=== PATIENT | female | born 1970 | race Caucasian/White ===

== ENCOUNTER → 2017-04-24 | Outpatient (POV) | payer MEDICAID, SELFPAY | PROVIDERS: Visit Provider Podiatrist | DX: M72.2 Plantar fascial fibromatosis (principal); B35.3 Tinea pedis | CPT/HCPCS: 99213 ==

== ENCOUNTER 2017-05-02 13:53 | Inpatient (IN) | payer MEDICAID, SELFPAY | END 2017-05-04 09:20 | disposition home or self-care (01) | DRG 392 | PROVIDERS: Admitting Provider Emergency Medicine; Emergency Provider Emergency Medicine; Visit Provider Emergency Medicine | DX: N17.9 Acute kidney failure, unspecified (principal); I10 Essential (primary) hypertension; Z72.0 Tobacco use; K52.9 Noninfective gastroenteritis and colitis, unspecified | CPT/HCPCS: 36415; 74176; 80048; 80053; 81001; 82150; 83690; 85025; 87086; 96365; 96367; 96375; 99285; J1956; J2405 ==

== ENCOUNTER → 2017-05-07 | Outpatient (CLI) | payer MEDICAID, SELFPAY | PROVIDERS: Visit Provider Emergency Medicine | DX: Z79.899 Other long term (current) drug therapy (principal) | CPT/HCPCS: 80053; 82043; 82570; 83036; 85025 ==

== ENCOUNTER 2017-05-13 09:18 | Emergency (ER) | payer MEDICAID, SELFPAY | END 2017-05-13 10:44 | disposition home or self-care (01) | PROVIDERS: Emergency Provider Emergency Medicine; Family Provider Emergency Medicine; Visit Provider Emergency Medicine | DX: J10.1 Influenza due to other identified influenza virus with other respiratory manifestations (principal); J45.909 Unspecified asthma, uncomplicated; F17.210 Nicotine dependence, cigarettes, uncomplicated; Z88.6 Allergy status to analgesic agent | CPT/HCPCS: 93971; 99282 ==

== ENCOUNTER → 2017-05-13 | Emergency (ER) | payer MEDICAID, SELFPAY | PROVIDERS: Emergency Provider Emergency Medicine; Visit Provider Emergency Medicine | DX: N17.9 Acute kidney failure, unspecified (principal); I20.8 Other forms of angina pectoris; Z79.899 Other long term (current) drug therapy; Z88.0 Allergy status to penicillin; I10 Essential (primary) hypertension; E78.5 Hyperlipidemia, unspecified; E03.9 Hypothyroidism, unspecified; F41.8 Other specified anxiety disorders; F17.210 Nicotine dependence, cigarettes, uncomplicated | CPT/HCPCS: 36415; 80053; 85025; 93971; 96372; 99282; 99283 ==

== ENCOUNTER 2017-05-14 15:35 | Inpatient (IN) | payer MEDICAID, SELFPAY | END 2017-05-16 15:25 | disposition home or self-care (01) | DRG 253 | PROVIDERS: Admitting Provider Family Medicine; Family Provider Emergency Medicine; Visit Provider Emergency Medicine | DX: I70.222 Atherosclerosis of native arteries of extremities with rest pain, left leg (principal); I70.92 Chronic total occlusion of artery of the extremities; N18.4 Chronic kidney disease, stage 4 (severe); I70.1 Atherosclerosis of renal artery; I77.1 Stricture of artery; Z72.0 Tobacco use; I12.9 Hypertensive chronic kidney disease with stage 1 through stage 4 chronic kidney disease, or unspecified chronic kidney disease; E87.6 Hypokalemia | CPT/HCPCS: 36200; 36415; 37226; 37230; 37234; 71020; 75630; 80048; 80053; 81001; 83735; 85025; 85347; 93005; 93923; 99152; J1644; J2720; Q9966 ==

== ENCOUNTER 2017-06-04 07:15 | Day surgery (SDC) | payer MEDICAID, SELFPAY ==
[2017-06-04] VITALS (14 sets, daily range): BP systolic 126–179; BP diastolic 81–99; PULSE 68–84; RESP 18–20; TEMP 36.6; O2SAT 91–98; BMI 28.8; BMI 28.5
[2017-06-04 07:59] LABS: Basophils # 0.1 K/mm3 (0-0.2); Basophils % 0.8 % (0.1-2.0); Eosinophils # 0.2 K/mm3 (0.0-0.4); Eosinophils % 2.8 % (0.1-12.0); Hemoglobin 14.4 g/dL (12.2-16.2); Lymphocytes % 13.2 K/mm3 (10-50); Mean Corpuscular HGB Conc 31.9 g/dL (31.8-35.4); Mean Corpuscular Hemoglobin 28.4 pg (27.0-31.2); Mean Corpuscular Volume 88.8 fl (81-99); Mean Platelet Volume 7.8 fl (7.4-10.4); Monocytes # 0.4 K/mm3 (0.1-1.0); Monocytes % 4.6 % (1.7-9.3); Neutrophils % 78.7 % (37.0-80.0); Platelet Count 224 K/mm3 (142-424); Red Blood Count 5.07 M/mm3 (4.20-5.40); Red Cell Distribution Width 14.8 % (11.5-17.5); White Blood Count 7.6 K/mm3 (4.8-10.8)
[2017-06-04 08:07] LABS: Anion Gap 9.8 mEq/L (5-15); Blood Urea Nitrogen 13 mg/dL (7-18); Carbon Dioxide 28 mmol/L (21.0-32.0); Chloride 105 mmol/L (98-107); Creatinine Clearance Estimated 54 mL/min (0-300); Creatinine,Serum 1.55 mg/dL (0.55-1.02); Estimated Glomerular Filt Rate 36 ml/min (>60); GFR (African American) 43 ML/MIN (>60); Glucose 82 mg/dL (74-106); Potassium 3.8 mmoL/L (3.5-5.1); Sodium 139 mmol/L (136-145)
--- NOTE | 2017-06-04 10:30 | IR_ITS ---
PROCEDURE: 1. Left renal selective angiogram 2. Stent deployment to the left renal artery INDICATION: 1. Renovascular hypertension 2. Chronic renal failure creatinine 1.5 Renal artery stenosis Informed consent was obtained prior to the procedure. COMPLICATIONS: None ESTIMATED BLOOD LOSS: Blood loss less than 10 cc. TECHNIQUE:1% lidocaine used to anesthetize the right femoral groin. The right femoral artery was accessed via the Seldinger technique. A 7 Sami sheath was placed in the right femoral artery and 7000 units of heparin was administered intra-arterially giving an ACT of 280 seconds. A short ALARCON guiding catheter was used intubate the left renal artery and angiography was performed. A wire was used to traverse the stenosis and a 4 mm x 12 mm balloon was used to predilate the stenosis. Following this a 6 mm x 12 mm Herculink stent was deployed at 14 juan reducing the severe stenosis to 0%. Excellent angiographic results were obtained. At the end of the procedure the groin was reprepped closure changed sheath was removed good hemostasis was achieved using Perclose device patient transferred to the postop holding area in stable condition Impression: 1. Severe 80-90% left renal artery stenosis 2. Successful stenting of the ostial proximal left renal artery severe disease reduced to 0% with 1 bare-metal stent Plan: 1. Dual antiplatelet therapy
[2017-06-04 13:03] LABS: CATHL Activated Clotting Time 280 SEC (74-125)
== END 2017-06-04 14:32 | disposition home or self-care (01) ==
LOC: CATHLAB 07:20
PROVIDERS: Family Provider Emergency Medicine; PCP Emergency Medicine; Visit Provider Internal Medicine
DX: I12.9 Hypertensive chronic kidney disease with stage 1 through stage 4 chronic kidney disease, or unspecified chronic kidney disease (principal); N18.9 Chronic kidney disease, unspecified; I70.1 Atherosclerosis of renal artery; Z72.0 Tobacco use; I73.9 Peripheral vascular disease, unspecified; I99.8 Other disorder of circulatory system
CPT/HCPCS: 37236; 80048; 85025; 85347; 99152; C1725; C1760; C1769; C1876; C1894; J1644; Q9966

== ENCOUNTER 2017-06-20 13:47 | Emergency (ER) | payer MEDICAID, SELFPAY ==
[2017-06-20 13:52] VITALS: BP 126/84; PULSE 62; RESP 16; TEMP 36.9; O2SAT 96; BMI 28.4
--- NOTE | 2017-06-20 14:22 | XR_ITS ---
XR foot LT min 3V HISTORY: Left foot pain ITS.REASON: pain, feels like knots plantar forefoot ORDERING PHYSICIAN: Tino Donaldson MD PATIENT AGE: 47 years COMPARISON: None FINDINGS: No fracture or dislocation. No lytic or blastic change. There is normal mineralization.. The joint spaces are well-preserved. No significant degenerative/arthritic changes. No erosive changes evident. IMPRESSION: Negative, no acute finding
--- NOTE | 2017-06-20 14:22 | HMH.EDGENADL ---
ED Disposition Clinical Impression: Left foot pain Disposition: Home, Self-Care Condition on Discharge: Good Additional Instructions: Call Dr. Mari and arrange appointment earliest available appointment. Referrals: Saurabh Gonzalez MD [Primary Care Provider] - Nicole Mari DPM [Physician] - - Critical Care Critical Care Time: No Attestation: On 06/20/17, the high probability of a clinically significant, sudden or life threatening deterioration of the following system(s) required my full and direct attention, intervention and personal management. The time I documented below is in addition to time spent performing reported procedures but includes the following listed in this critical care notation. Medical Decision Making Vital Signs: 06/20/17 13:52 Temperature 98.4 F Temperature Source Oral Pulse Rate [Right Brachial] 62 Respiratory Rate 16 Blood Pressure [Right Arm] 126/84 Blood Pressure Mean [Right Arm] 98 Blood Pressure Source [Right Arm] Automatic Cuff Blood Pressure Position [Right Arm] Supine 02 Sat by Pulse Oximetry 96 Oxygen Delivery Method Room Air Orders (Tests/Meds): ORDERS Category Date Time Status Foot XR left minimum 3 views [XR foot LT min 3V] Stat Exams 06/20/17 14:22 Taken - Radiology Data #1 Image(s): Foot/Toes Image Reviewed: Yes I reviewed the patient's radiology results Heel spur. No acute process. - Jacinto Inquiry Pt receiving controlled substance: No Medical Decision Making Narrative: I do not feel there is any evidence of a significant vascular issue at this time. The patient sees Dr. Mari, auto cleaner, for plantar fasciitis and failed an appointment on June 05. I advised her to follow-up with Dr. Mari for this current problem, call to arrange earliest available appointment. General Adult HPI - General Chief complaint: PAIN Stated complaint: knots on bottom of foot Mode of Arrival: Family Vehicle Limitations: No Limitations Description of Symptoms (Recalled from ER Triage Doc. by RN): C/O NUMBNESS OF BOTTOM OF LEFT FOOT AFTER HAVING 5 STENTS PALCED IN LEFT LEG. ALSO C/O PAIN LEFT FOOT AND FEELS LIKE KNOTS IN FOOT WHEN STANDING FOR APPROX 2 WEEKS - History of Present Illness HPI narrative: The patient complains of numbness and pain of her left foot for the past 2 weeks. She says when she stands she has a sensation that there are knots on the plantar aspect of her foot in the forefoot. When she takes off her shoes and feels the area, she cannot actually feel anything under the skin. She also complains of sensation of numbness of the forefoot and toes. Her foot has been numb for quite some time, ever since she had a revascularization procedure with stents in her left leg in April. She says however that it was her heel that was numb and it is now her forefoot. She is on Percocet, prescribed by Dr. Serrano, for pain. She has had no recent trauma or injury. Review of her records shows that she had an x-ray of her left foot for foot pain through the emergency department September 2016 and it was negative. - Related Data Home Medications Medication Instructions Recorded Confirmed aspirin 81 mg tablet,delayed 81 mg PO QDAY 05/20/17 06/20/17 release atorvastatin 10 mg tablet 10 mg PO QDAY 05/20/17 06/20/17 clonazepam 0.5 mg tablet 0.5 mg PO BID tab 05/20/17 06/20/17 clopidogrel 75 mg tablet 75 mg PO QDAY 05/20/17 06/20/17 gabapentin 800 mg tablet 800 mg PO TID 05/20/17 06/20/17 oxycodone-acetaminophen 5 mg-325 1 tab PO Q8H PRN tab 05/27/17 06/20/17 mg tablet Amlodipine Besylate [Amlodipine 10 mg PO QDAY 06/20/17 06/20/17 10mg Tab] Metoprolol Succinate [Toprol XL 50 mg PO BID 06/20/17 06/20/17 50mg Tablet] Metoprolol Succinate [Toprol XL 50 mg PO DAILY 06/20/17 06/20/17 50mg Tablet] Nicotine [Nicoderm Cq 14mg] 14 mg TRANSDERMA Q24H 06/20/17 06/20/17 Nicotine [Nicoderm Cq 7mg] 1 patch TRANSDERMA Q24H 06/20/17 06/20/17 Nicotin
--- NOTE | 2017-06-20 14:25 | ED_ITS ---
ED Disposition Clinical Impression: Left foot pain Disposition: Home, Self-Care Condition on Discharge: Good Additional Instructions: Call Dr. Mari and arrange appointment earliest available appointment. Referrals: Saurabh Gonzalez MD [Primary Care Provider] - Nicole Mari DPM [Physician] - - Critical Care Critical Care Time: No Attestation: On 06/20/17, the high probability of a clinically significant, sudden or life threatening deterioration of the following system(s) required my full and direct attention, intervention and personal management. The time I documented below is in addition to time spent performing reported procedures but includes the following listed in this critical care notation. Medical Decision Making Vital Signs: 06/20/17 13:52 Temperature 98.4 F Temperature Source Oral Pulse Rate [Right Brachial] 62 Respiratory Rate 16 Blood Pressure [Right Arm] 126/84 Blood Pressure Mean [Right Arm] 98 Blood Pressure Source [Right Arm] Automatic Cuff Blood Pressure Position [Right Arm] Supine 02 Sat by Pulse Oximetry 96 Oxygen Delivery Method Room Air Orders (Tests/Meds): ORDERS Category Date Time Status Foot XR left minimum 3 views [XR foot LT min 3V] Stat Exams 06/20/17 14:22 Taken - Radiology Data #1 Image(s): Foot/Toes Image Reviewed: Yes I reviewed the patient's radiology results Heel spur. No acute process. - Jacinto Inquiry Pt receiving controlled substance: No Medical Decision Making Narrative: I do not feel there is any evidence of a significant vascular issue at this time. 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 I advised her to follow-up with Dr. Mari for this current problem, call to arrange earliest available appointment. General Adult HPI - General Chief complaint: PAIN Stated complaint: knots on bottom of foot Mode of Arrival: Family Vehicle Limitations: No Limitations Description of Symptoms (Recalled from ER Triage Doc. by RN): C/O NUMBNESS OF BOTTOM OF LEFT FOOT AFTER HAVING 5 STENTS PALCED IN LEFT LEG. ALSO C/O PAIN LEFT FOOT AND FEELS LIKE KNOTS IN FOOT WHEN STANDING FOR APPROX 2 WEEKS - History of Present Illness HPI narrative: The patient complains of numbness and pain of her left foot for the past 2 weeks. She says when she stands she has a sensation that there are knots on the plantar aspect of her foot in the forefoot. When she takes off her shoes and feels the area, she cannot actually feel anything under the skin. She also complains of sensation of numbness of the forefoot and toes. Her foot has been numb for quite some time, ever since she had a revascularization procedure with stents in her left leg in April. She says however that it was her heel that was numb and it is now her forefoot. She is on Percocet, prescribed by Dr. Serrano, for pain. She has had no recent trauma or injury. Review of her records shows that she had an x-ray of her left foot for foot pain through the emergency department September 2016 and it was negative. - Related Data Home Medications Medication Instructions Recorded Confirmed aspirin 81 mg tablet,delayed 81 mg PO QDAY 05/20/17 06/20/17 release atorvastatin 10 mg tablet 10 mg PO QDAY 05/20/17 06/20/17 clonazepam 0.5 mg tablet 0.5 mg PO BID tab 05/20/17 06/20/17 clopidogrel 75 mg tablet 75 mg P
[2017-06-20 14:49] VITALS: BP 124/86; PULSE 64; RESP 16; TEMP 36.8; O2SAT 97
== END 2017-06-20 14:51 | disposition home or self-care (01) ==
PROVIDERS: Emergency Provider Emergency Medicine; Family Provider Emergency Medicine; PCP Emergency Medicine
DX: M79.672 Pain in left foot (principal); R22.42 Localized swelling, mass and lump, left lower limb; Z95.818 Presence of other cardiac implants and grafts; Z79.82 Long term (current) use of aspirin; Z79.899 Other long term (current) drug therapy
CPT/HCPCS: 73630; 99281

== ENCOUNTER → 2017-07-16 09:22 | Outpatient (REF) | payer MEDICAID, SELFPAY ==
[2017-07-16 14:39] LABS: Amphetamine/Metha Screen,Urine Negative ng/mL (<1000); Barbiturates Screen,Urine Negative ng/mL (<200); Benzodiazepines Screen,Urine Negative ng/mL (200); Cannabinoid Screen,Urine Negative ng/mL (<50); Cocaine Screen,Urine Negative ng/g (<300); Methadone Screen,Urine Negative ng/mL (<300); Phencyclidine Screen,Urine Negative ng/mL (<25)
[2017-07-16 14:59] LABS: Opiate Screen,Urine Negative ng/mL (<300)
== END ==
LOC: LAB 09:22
PROVIDERS: Visit Provider Emergency Medicine
DX: Z79.899 Other long term (current) drug therapy (principal)
CPT/HCPCS: 80305

== ENCOUNTER 2017-08-01 20:08 | Emergency (ER) | payer MEDICAID, SELFPAY ==
[2017-08-01 20:09] VITALS: BP 146/86; PULSE 85; RESP 20; TEMP 37.1; O2SAT 99; BMI 28.3
--- NOTE | 2017-08-01 20:15 | XR_ITS ---
XR chest 2V INDICATION: Chest pain COMPARISON: PA and lateral chest 09/29/2014 FINDINGS: The cardiovascular structures are unremarkable. No mediastinal shift or hilar mass is evident. The lungs are well expanded and clear bilaterally. The costophrenic sulci are sharp. No significant bony anomalies are apparent. IMPRESSION: Negative chest.
--- NOTE | 2017-08-01 20:54 | HMH.EDGENADL ---
ED Disposition Clinical Impression: Hypokalemia Chest pain Qualifiers: Chest pain type: unspecified Qualified Code(s): R07.9 - Chest pain, unspecified Disposition: Home, Self-Care Condition on Discharge: Good Instructions: DI for Atypical Chest Pain Additional Instructions: See Dr. Serrano in his office on Friday morning at 9 AM. Prescriptions: Bisoprolol Fumarate 10 mg PO DAILY #30 tab Potassium Chloride [K-Tab ER 20 mEq] 20 meq PO BID #14 tab Referrals: Saurabh Gonzalez MD [Primary Care Provider] - - Critical Care Critical Care Time: No Attestation: On 08/01/17, the high probability of a clinically significant, sudden or life threatening deterioration of the following system(s) required my full and direct attention, intervention and personal management. The time I documented below is in addition to time spent performing reported procedures but includes the following listed in this critical care notation. Medical Decision Making - Jacinto Inquiry Pt receiving controlled substance: No Vital Signs: 08/01/17 20:09 Temperature 98.7 F Temperature Source Oral Pulse Rate [Right Radial] 85 Respiratory Rate 20 Blood Pressure [Right Arm] 146/86 Blood Pressure Mean [Right Arm] 106 02 Sat by Pulse Oximetry 99 - Lab Data Lab Results 08/01/17 20:15: WBC 6.1, RBC 5.36, Hgb 14.9, Hct 46.4, MCV 86.6, MCH 27.8, MCHC 32.1, RDW 14.6, Plt Count 256, MPV 8.0, Neut % (Auto) 71.8, Lymph % (Auto) 18.4, [place] % (Auto) 6.2, Eos % (Auto) 3.0, Baso % (Auto) 0.7, Neut # (Auto) 4.4, Lymph # (Auto) 1.1, [place] # (Auto) 0.4, Eos # (Auto) 0.2, Baso # (Auto) 0.1 08/01/17 20:15: Sodium 142, Potassium 2.5 L*, Chloride 104, Carbon Dioxide 29, Anion Gap 11.5, BUN 6 L, Creatinine 1.49 H, Estimated Creat Clear 56, Estimated GFR 37 L, Est GFR ( Amer) 45 L, Glucose 148 H, Calcium 9.3, Total Bilirubin 0.2, AST 16, ALT 24, Alkaline Phosphatase 137 H, Total Creatine Kinase 109, CK-MB (CK-2) 1.1, CK-MB (CK-2) Rel Index 1.0, Troponin I < 0.02, Total Protein 8.0, Albumin 3.9, Globulin 4.1 H, Albumin/Globulin Ratio 1.0 L Result diagrams: 08/01/17 20:15 08/01/17 20:15 Orders (Tests/Meds): ED MEDICATIONS Discontinued Medications Generic Name Dose Route Start Last Admin Trade Name Eleuterio PRN Reason Stop Dose Admin Aspirin 243 mg 08/01/17 20:16 08/01/17 20:19 Aspirin 81mg Chewable Tablet PO 08/01/17 20:17 243 mg ONCE ONE Administration ORDERS Category Date Time Status 12-lead EKG Request [ECG Request by /Hailey] Stat Y 08/01/17 20:16 Ordered - Radiology Data #1 Image(s): Chest Image Reviewed: Yes I have reviewed radiologist's interpretation Preliminary Findings: Normal/NAD - ECG Data Tracing #1 I reviewed this ECG and interpreted as documented below: EKG interpreted by Tino Donaldson MD: Rhythm: sinus Rate: 89 Murray: normal Ectopy: none Conduction: normal ST Segment Changes: none T Wave Changes: none Q Waves: none No evidence of acute ischemia or injury Normal electrocardiogram Medical Decision Narrative: I reviewed the patient's records. She has not had a left heart cath done here since September 01, 2015. It showed normal coronary arteries. Her other angiograms were related to her renal stent and peripheral vascular disease. I reviewed Dr. Serrano's office note from 07/29/17. 10:30 PM: Discussed with Dr. Serrano. I discussed the narrative in his note with him. He feels that since the patient had a normal coronary arteries on a heart cath in August 2015, she is not likely to have significant coronary artery disease. Heart workup here is negative with normal EKG and cardiac enzymes. He feels the patient can be discharged. He requests that she be started on bisoprolol 10 mg now and 10 mg per day and to see him in his office at 9 AM on Friday. General Adult HPI - General Chief complaint: Chest Pain Stated complaint: chest pain Time Seen by Provider: 08/01/17 22:17 Mode
[2017-08-01 21:05] LABS: Alanine Aminotransferase 24 U/L (12-78); Albumin Level 3.9 gm/dL (3.4-5.0); Alkaline Phosphatase 137 U/L (46-116); Anion Gap 11.5 mEq/L (5-15); Aspartate Amino Transferase 16 U/L (15-37); Bilirubin,Total 0.2 mg/dL (0.2-1.0); Blood Urea Nitrogen 6 mg/dL (7-18); Calcium 9.3 mg/dL (8.5-10.1); Carbon Dioxide 29 mmol/L (21.0-32.0); Chloride 104 mmol/L (98-107); Creatine Kinase 109 U/L (26-192); Creatine Kinase MB 1.1 mg/ml (0.0-3.6); Creatinine Clearance Estimated 56 mL/min (0-300); Creatinine,Serum 1.49 mg/dL (0.55-1.02); Estimated Glomerular Filt Rate 37 ml/min (>60); GFR (African American) 45 ML/MIN (>60); Globulin 4.1 gm/dl (1.3-3.2); Glucose 148 mg/dL (74-106); Sodium 142 mmol/L (136-145); Troponin I < 0.02 ng/ml (0.00-0.06)
[2017-08-01 21:08] LABS: Basophils # 0.1 K/mm3 (0-0.2); Basophils % 0.7 % (0.1-2.0); Eosinophils # 0.2 K/mm3 (0.0-0.4); Hematocrit 46.4 % (37.0-47.0); Hemoglobin 14.9 g/dL (12.2-16.2); Lymphocytes # 1.1 K/mm3 (0.7-4.5); Lymphocytes % 18.4 K/mm3 (10-50); Mean Corpuscular HGB Conc 32.1 g/dL (31.8-35.4); Mean Corpuscular Hemoglobin 27.8 pg (27.0-31.2); Mean Corpuscular Volume 86.6 fl (81-99); Monocytes # 0.4 K/mm3 (0.1-1.0); Monocytes % 6.2 % (1.7-9.3); Neutrophils # 4.4 K/mm3 (1.8-7.8); Neutrophils % 71.8 % (37.0-80.0); Platelet Count 256 K/mm3 (142-424); Red Blood Count 5.36 M/mm3 (4.20-5.40); Red Cell Distribution Width 14.6 % (11.5-17.5); White Blood Count 6.1 K/mm3 (4.8-10.8)
[2017-08-01 21:11] LABS: Potassium 2.5 mmoL/L (3.5-5.1)
[2017-08-01 22:08] VITALS: BP 124/68; PULSE 81; O2SAT 97
--- NOTE | 2017-08-01 22:34 | PC.NURSE ---
DR. Donaldson on phone with DR. Serrano.
--- NOTE | 2017-08-01 23:12 | PC.NURSE ---
bisoprolol 10 mg po given per md order. mar would not allow me to chart in mar documentation.
[2017-08-01 23:13] VITALS: BP 134/70; PULSE 80; RESP 20; TEMP 37.1; O2SAT 99
== END 2017-08-01 23:13 | disposition home or self-care (01) ==
PROVIDERS: Emergency Provider Emergency Medicine; Family Provider Emergency Medicine; PCP Emergency Medicine
DX: R07.9 Chest pain, unspecified (principal); E87.6 Hypokalemia; J44.9 Chronic obstructive pulmonary disease, unspecified; E78.5 Hyperlipidemia, unspecified; I10 Essential (primary) hypertension; E10.9 Type 1 diabetes mellitus without complications; I73.9 Peripheral vascular disease, unspecified; Z95.0 Presence of cardiac pacemaker; E03.9 Hypothyroidism, unspecified; R56.9 Unspecified convulsions; Z88.0 Allergy status to penicillin; Z88.6 Allergy status to analgesic agent
CPT/HCPCS: 71046; 80053; 82550; 82553; 84484; 85025; 93005; 99283

== ENCOUNTER 2017-08-13 17:35 | Emergency (ER) | payer MEDICAID, SELFPAY ==
[2017-08-13 17:37] VITALS: BP 135/77; PULSE 56; RESP 18; TEMP 36.6; O2SAT 98; BMI 28.3
[2017-08-13 19:17] LABS: Basophils % 0.5 % (0.1-2.0); Eosinophils # 0.1 K/mm3 (0.0-0.4); Eosinophils % 2.1 % (0.1-12.0); Hemoglobin 14.6 g/dL (12.2-16.2); Lymphocytes # 1.1 K/mm3 (0.7-4.5); Lymphocytes % 27.5 K/mm3 (10-50); Mean Corpuscular HGB Conc 33.8 g/dL (31.8-35.4); Mean Corpuscular Hemoglobin 28.9 pg (27.0-31.2); Mean Corpuscular Volume 85.6 fl (81-99); Mean Platelet Volume 8.1 fl (7.4-10.4); Monocytes # 0.4 K/mm3 (0.1-1.0); Monocytes % 9.2 % (1.7-9.3); Neutrophils # 2.4 K/mm3 (1.8-7.8); Neutrophils % 60.8 % (37.0-80.0); Platelet Count 292 K/mm3 (142-424); Red Blood Count 5.03 M/mm3 (4.20-5.40); Red Cell Distribution Width 14.2 % (11.5-17.5); White Blood Count 3.9 K/mm3 (4.8-10.8)
[2017-08-13 19:36] LABS: Alanine Aminotransferase 16 U/L (12-78); Albumin Level 3.5 gm/dL (3.4-5.0); Albumin/Globulin Ratio 0.9 (1.1-1.8); Alkaline Phosphatase 137 U/L (46-116); Amylase 50 U/L (25-125); Anion Gap 12.9 mEq/L (5-15); Aspartate Amino Transferase 10 U/L (15-37); Bilirubin,Total 0.3 mg/dL (0.2-1.0); Blood Urea Nitrogen 10 mg/dL (7-18); Calcium 9.4 mg/dL (8.5-10.1); Carbon Dioxide 24 mmol/L (21.0-32.0); Chloride 108 mmol/L (98-107); Creatinine Clearance Estimated 59 mL/min (0-300); Creatinine,Serum 1.43 mg/dL (0.55-1.02); Estimated Glomerular Filt Rate 39 ml/min (>60); GFR (African American) 47 ML/MIN (>60); Globulin 4.1 gm/dl (1.3-3.2); Glucose 90 mg/dL (74-106); Lipase 190 u/L (73-393); Potassium 2.9 mmoL/L (3.5-5.1); Sodium 142 mmol/L (136-145); Total Protein,Serum 7.6 gm/dL (6.4-8.2)
--- NOTE | 2017-08-13 19:36 | HMH.EDGENADL ---
ED Disposition Clinical Impression: Dehydration, Gastroenteritis, Hypokalemia UTI (urinary tract infection) Qualifiers: Urinary tract infection type: acute cystitis Hematuria presence: without hematuria Qualified Code(s): N30.00 - Acute cystitis without hematuria Clinical Impression: (Ruled Out): UTI (urinary tract infection) in in first trimester Disposition: Home, Self-Care Condition on Discharge: Fair Instructions: DI for Dehydration -- Adult, DI for Viral Gastroenteritis -- Adult, DI for Urinary Tract Infection (UTI), DI for Hypokalemia Additional Instructions: Please drink plenty of fluids, take the medications described as directed, follow-up with PCP within 2 days, if not better. Prescriptions: Nitrofurantoin Monohyd/M-Cryst [Macrobid 100 mg Capsule] 100 mg PO BID #14 cap Ondansetron [Zofran 4mg ODT] 4 mg PO QID PRN #20 tab.rapdis PRN Reason: Nausea Potassium Chloride [K-Tab ER 20 mEq] 20 meq PO DAILY #5 tab Referrals: Saurabh Gonzalez MD [Primary Care Provider] - Time of Disposition: 19:37 - Critical Care Critical Care Time: No Attestation: On 08/13/17, the high probability of a clinically significant, sudden or life threatening deterioration of the following system(s) required my full and direct attention, intervention and personal management. The time I documented below is in addition to time spent performing reported procedures but includes the following listed in this critical care notation. Medical Decision Making - Medical Records Medical records reviewed: Yes: I reviewed the patient's medical records. - Jacinto Inquiry Pt receiving controlled substance: No Vital Signs: 08/13/17 17:37 08/13/17 20:00 Temperature 97.9 F 97.6 F Temperature Source Oral Axillary Pulse Rate 89 Pulse Rate [Right Brachial] 56 L Respiratory Rate 18 19 Blood Pressure 129/89 Blood Pressure [Right Arm] 135/77 Blood Pressure Mean [Right Arm] 96 Blood Pressure Source Automatic Cuff Blood Pressure Source [Right Arm] Automatic Cuff Blood Pressure Position Sitting Blood Pressure Position [Right Arm] Sitting 02 Sat by Pulse Oximetry 98 Oxygen Delivery Method Room Air - Lab Data Lab results reviewed: Yes: I reviewed the patient's lab results. Lab Results 08/13/17 17:50: Influenza Type A Ag Negative, Influenza Type B Ag Negative 08/13/17 19:00: WBC 3.9 L, RBC 5.03, Hgb 14.6, Hct 43.0, MCV 85.6, MCH 28.9, MCHC 33.8, RDW 14.2, Plt Count 292, MPV 8.1, Neut % (Auto) 60.8, Lymph % (Auto) 27.5, [place] % (Auto) 9.2, Eos % (Auto) 2.1, Baso % (Auto) 0.5, Neut # (Auto) 2.4, Lymph # (Auto) 1.1, [place] # (Auto) 0.4, Eos # (Auto) 0.1, Baso # (Auto) 0.0 08/13/17 19:00: Sodium 142, Potassium 2.9 L*, Chloride 108 H, Carbon Dioxide 24, Anion Gap 12.9, BUN 10, Creatinine 1.43 H, Estimated Creat Clear 59, Estimated GFR 39 L, Est GFR ( Amer) 47 L, Glucose 90, Calcium 9.4, Total Bilirubin 0.3, AST 10 L, ALT 16, Alkaline Phosphatase 137 H, Total Protein 7.6, Albumin 3.5, Globulin 4.1 H, Albumin/Globulin Ratio 0.9 L, Amylase 50, Lipase 190 08/13/17 19:50: Urine Color Yellow, Urine Appearance Clear, Urine pH 6.5, Ur Specific [place] <= 1.005, Urine Protein Negative, Urine Glucose (UA) Negative, Urine Ketones Negative, Urine Blood Negative, Urine Nitrate Negative, Urine Bilirubin Negative, Urine Urobilinogen 0.2, Ur Leukocyte Esterase 1+ A, Urine RBC Occasional, Urine WBC 3-5, Ur Squamous Epith Cells 20-50, Ur Transition Epith Cell Occ, Urine Bacteria 3+, Coarse Granular Casts Occasional Result diagrams: 08/13/17 19:00 08/13/17 19:00 Orders (Tests/Meds): ED MEDICATIONS Discontinued Medications Generic Name Dose Route Start Last Admin Trade Name Freq PRN Reason Stop Dose Admin Sodium Chloride 1,000 mls @ 999 mls/hr 08/13/17 19:00 08/13/17 19:19 Sod Chlor 0.9% 1000ml Bag IV 08/13/17 20:00 999 mls/hr .Q1H1M VIVIANE Administration Sodium Chloride 1,000 mls @ 500 mls/hr 08/13/17 19:45 08/13/17 19:
--- NOTE | 2017-08-13 19:39 | ED_ITS ---
ED Disposition Clinical Impression: Dehydration, Gastroenteritis, Hypokalemia UTI (urinary tract infection) Qualifiers: Urinary tract infection type: acute cystitis Hematuria presence: without hematuria Qualified Code(s): N30.00 - Acute cystitis without hematuria Clinical Impression: (Ruled Out): UTI (urinary tract infection) in in first trimester Disposition: Home, Self-Care Condition on Discharge: Fair Instructions: DI for Dehydration -- Adult, DI for Viral Gastroenteritis -- Adult, DI for Urinary Tract Infection (UTI), DI for Hypokalemia Additional Instructions: Please drink plenty of fluids, take the medications described as directed, follow-up with PCP within 2 days, if not better. Prescriptions: Nitrofurantoin Monohyd/M-Cryst [Macrobid 100 mg Capsule] 100 mg PO BID #14 cap Ondansetron [Zofran 4mg ODT] 4 mg PO QID PRN #20 tab.rapdis PRN Reason: Nausea Potassium Chloride [K-Tab ER 20 mEq] 20 meq PO DAILY #5 tab Referrals: Saurabh Gonzalez MD [Primary Care Provider] - Time of Disposition: 19:37 - Critical Care Critical Care Time: No Attestation: On 08/13/17, the high probability of a clinically significant, sudden or life threatening deterioration of the following system(s) required my full and direct attention, intervention and personal management. The time I documented below is in addition to time spent performing reported procedures but includes the following listed in this critical care notation. Medical Decision Making - Medical Records Medical records reviewed: Yes: I reviewed the patient's medical records. - Jacinto Inquiry Pt receiving controlled substance: No Vital Signs: 08/13/17 17:37 08/13/17 20:00 Temperature 97.9 F 97.6 F Temperature Source Oral Axillary Pulse Rate 89 Pulse Rate [Right Brachial] 56 L Respiratory Rate 18 19 Blood Pressure 129/89 Blood Pressure [Right Arm] 135/77 Blood Pressure Mean [Right Arm] 96 Blood Pressure Source Automatic Cuff Blood Pressure Source [Right Arm] Automatic Cuff Blood Pressure Position Sitting Blood Pressure Position [Right Arm] Sitting 02 Sat by Pulse Oximetry 98 Oxygen Delivery Method Room Air - Lab Data Lab results reviewed: Yes: I reviewed the patient's lab results. Lab Results 08/13/17 17:50: Influenza Type A Ag Negative, Influenza Type B Ag Negative 08/13/17 19:00: WBC 3.9 L, RBC 5.03, Hgb 14.6, Hct 43.0, MCV 85.6, MCH 28.9, MCHC 33.8, RDW 14.2, Plt Count 292, MPV 8.1, Neut % (Auto) 60.8, Lymph % (Auto) 27.5, [place] % (Auto) 9.2, Eos % (Auto) 2.1, Baso % (Auto) 0.5, Neut # (Auto) 2.4 , Lymph # (Auto) 1.1, [place] # (Auto) 0.4, Eos # (Auto) 0.1, Baso # (Auto) 0.0 08/13/17 19:00: Sodium 142, Potassium 2.9 L*, Chloride 108 H, Carbon Dioxide 24 , Anion Gap 12.9, BUN 10, Creatinine 1.43 H, Estimated Creat Clear 59, Estimated GFR 39 L, Est GFR ( Amer) 47 L, Glucose 90, Calcium 9.4, Total Bilirubin 0.3, AST 10 L, ALT 16, Alkaline Phosphatase 137 H, Total Protein 7.6, Albumin 3.5, Globulin 4.1 H, Albumin/Globulin Ratio 0.9 L, Amylase 50, Lipase 190 08/13/17 19:50: Urine Color Yellow, Urine Appearance Clear, Urine pH 6.5, Ur Specific [place] <= 1.005, Urine Protein Negative, Urine Glucose (UA) Negative, Urine Ketones Negative, Urine Blood Negative, Urine Nitrate Negative, Urine Bilirubin Negative, Urine Urobilinogen 0.2, Ur Leukocyte Esterase 1+ A, Urine RBC Occasional, Urine WBC 3-5, Ur Squamous Epith Cells 20-50, Ur Transition Epith Cell Occ, Urine Bacteria 3+, Coarse Granular
[2017-08-13 19:54] LABS: Microscopic, Urine URINE MICROSCOPIC (MICROSCOPIC)
[2017-08-13 20:00] VITALS: BP 129/89; PULSE 89; RESP 19; TEMP 36.4; O2SAT 96
--- NOTE | 2017-08-13 20:01 | PC.NURSE ---
pt ready for discharge at 1999. md stated to finish letting the bag of ivf run in completely before discharging.
[2017-08-13 20:10] LABS: Appearance,Urine CLEAR (Clear); Bilirubin,Urine Negative (Negative); Blood, Urine Negative (Negative); Color,Urine YELLOW (Yellow); Glucose,Urine (UA) Negative (Negative); Ketones,Urine Negative (Negative); Leukocyte Esterase,Urine 1+ (Negative); Nitrate,Urine Negative (Negative); PH,Urine 6.5 (5.0-8.5); Protein,Urine Negative (Negative); Specific Gravity, Urine <= 1.005 (1.005-1.030); Urobilinogen,Urine 0.2 EU/dl (0.2)
[2017-08-13 20:35] LABS: RBC,Urine Occasional #/hpf (0-3); Squamous Epithelial Cell,Urine 20-50 #/hpf (0-5)
[2017-08-13 20:36] LABS: Bacteria,Urine 3+ /lpf; Coarse Granular Casts,Urine Occasional #/lpf (0); Transitional Epi Cells,Urine OCC #/lpf (0-3)
== END 2017-08-13 20:12 | disposition home or self-care (01) ==
PROVIDERS: Emergency Provider Emergency Medicine; Family Provider Emergency Medicine; PCP Emergency Medicine
DX: N30.00 Acute cystitis without hematuria (principal); K52.9 Noninfective gastroenteritis and colitis, unspecified; E86.0 Dehydration; Z79.82 Long term (current) use of aspirin; J44.9 Chronic obstructive pulmonary disease, unspecified; Z88.0 Allergy status to penicillin; E78.5 Hyperlipidemia, unspecified; I10 Essential (primary) hypertension; I73.9 Peripheral vascular disease, unspecified; E03.9 Hypothyroidism, unspecified
CPT/HCPCS: 80053; 81001; 82150; 83690; 85025; 87086; 87186; 87275; 87276; 96365; 96375; 99283; J2405

== ENCOUNTER → 2017-09-29 08:27 | Outpatient (POV) | payer MEDICAID, SELFPAY ==
[2017-09-29 08:54] VITALS: BP 139/76; PULSE 78; RESP 18; TEMP 36.6; O2SAT 99
--- NOTE | 2017-09-30 08:55 | HMH.PMCON ---
Assessment and Plan (1) Ischemic neuropathy of left foot Current visit: No Status: Chronic Category: Medical Code(s): G57.92 - Unspecified mononeuropathy of left lower limb (2) Neuropathy Current visit: No Status: Chronic Category: Medical Code(s): G62.9 - Polyneuropathy, unspecified (3) Left foot pain Current visit: No Status: Chronic Category: Medical Code(s): M79.672 - Pain in left foot (4) PAD (peripheral artery disease) Problem details: Current visit: No Status: Chronic Category: Medical Code(s): I73.9 - Peripheral vascular disease, unspecified - Assessment and plan all Dx Assessment and Plan for all problems:: I gave the patient information on DRG stimulation. I believe that this would be the most beneficial for her. Patient and I had a discussion about appropriate medications while dealing with neuropathic pain. Patient is currently on gabapentin. I believe this to be quite appropriate. Patient would like to take some information on the DRG stimulator home and call us if she would like to go forward with the process. This note was dictated using voice recognition software and may contain errors or omissions HPI - Data of Consult Consult date: 09/29/17 Requesting Physician: Debi Georges APRN Primary Care Provider: Saurabh Gonzalez MD Family Provider: Saurabh Gonzalez MD - Consult Narrative Reason for consult: Left leg pain History of present illness: Ms. Quintero is a 47 year old female who presents today for consultation in regards to her left leg and foot pain. Patient has peripheral artery disease and has had 5 stents placed back in April 2017. Patient has had pain throughout her left leg into her foot along with numbness and tingling. She states she has burning and stabbing sensations as well as throbbing sensation. She rates her pain a 9 out of 10. Patient has tried and failed benzodiazepines, gabapentin, tramadol. Patient states that walking does decrease her pain somewhat. Patient has notable color changes along with swelling of her leg. Patient states she also has temperature changes in the affected area. CC: Debi Georges APRN [facility] History I have reviewed the patient's past medical history: Yes Medical History: Reports:: Chronic Obstructive Pulmonary Disease (COPD), Hyperlipidemia, Hypertension, Peripheral Artery Disease Denies:: Cancer, Diabetes Mellitus Type 1, Diabetes Mellitus Type 2, Internal Pacemaker, MRSA, Seizures Other Medical History: Reports: Hypothyroidism Laterality Cases: Right: Carpal Tunnel Release Other Surgeries: Yes: Colonoscopy, Tubal Ligation, Other (Cath-stent to renal). No: Pacemaker Amputation: No Fractures: No - *Social History Smoking Status: Current every day smoker Tobacco Type: cigarettes # Packs/Day (cigarettes): 0 Alcohol Intake: never Alcohol Intake Frequency:: other Substance Use Type: denies use Occupational Status: unemployed Housing: house Household Members: spouse - Psychiatric History Expresses thoughts of harming self/others: None Suicide Plan Description: No Plan *Family Hx:: Unable to obtain Review of Systems - Review of Systems ROS General: no recent weight change, no fever, no sleep disturbances Respiratory: no cough, no shortness of air, no recurring pulmonary infections Cardiovascular/Peripheral Vascular: No chest pain, No palpitations, no edema, no shortness of breath. Gastrointestinal: no incontinence, normal bowel movements reported Genitourinary: no incontinence Musculoskeletal: Left foot and leg pain Psychiatric: normal mood/ affect Neurological: [denies weakness in extremities], [denies balance issues] Meds Home Medications Medication Instructions Recorded Confirmed Type aspirin 81 mg tablet,delayed 81 mg PO QDAY 05/20/17 08/01/17 History release clopidogrel 75 mg tablet 75 mg PO QDAY 05/20/17 08/01/17 History Allergies Allergy/AdvReac T
--- NOTE | 2017-09-30 08:59 | P.CONS_ITS ---
Assessment and Plan (1) Ischemic neuropathy of left foot Current visit: No Status: Chronic Category: Medical Code(s): G57.92 - Unspecified mononeuropathy of left lower limb (2) Neuropathy Current visit: No Status: Chronic Category: Medical Code(s): G62.9 - Polyneuropathy, unspecified (3) Left foot pain Current visit: No Status: Chronic Category: Medical Code(s): M79.672 - Pain in left foot (4) PAD (peripheral artery disease) Problem details: Current visit: No Status: Chronic Category: Medical Code(s): I73.9 - Peripheral vascular disease, unspecified - Assessment and plan all Dx Assessment and Plan for all problems:: I gave the patient information on DRG stimulation. I believe that this would be the most beneficial for her. Patient and I had a discussion about appropriate medications while dealing with neuropathic pain. Patient is currently on gabapentin. I believe this to be quite appropriate. Patient would like to take some information on the DRG stimulator home and call us if she would like to go forward with the process. This note was dictated using voice recognition software and may contain errors or omissions HPI - Data of Consult Consult date: 09/29/17 Requesting Physician: Debi Georges APRN Primary Care Provider: Saurabh Gonzalez MD Family Provider: Saurabh Gonzalez MD - Consult Narrative Reason for consult: Left leg pain History of present illness: Ms. Quintero is a 47 year old female who presents today for consultation in regards to her left leg and foot pain. Patient has peripheral artery disease and has had 5 stents placed back in April 2017. Patient has had pain throughout her left leg into her foot along with numbness and tingling. She states she has burning and stabbing sensations as well as throbbing sensation. She rates her pain a 9 out of 10. Patient has tried and failed benzodiazepines , gabapentin, tramadol. Patient states that walking does decrease her pain somewhat. Patient has notable color changes along with swelling of her leg. Patient states she also has temperature changes in the affected area. CC: Debi Georges APRN [facility] History I have reviewed the patient's past medical history: Yes Medical History: Reports:: Chronic Obstructive Pulmonary Disease (COPD), Hyperlipidemia, Hypertension, Peripheral Artery Disease Denies:: Cancer, Diabetes Mellitus Type 1, Diabetes Mellitus Type 2, Internal Pacemaker, MRSA, Seizures Other Medical History: Reports: Hypothyroidism Laterality Cases: Right: Carpal Tunnel Release Other Surgeries: Yes: Colonoscopy, Tubal Ligation, Other (Cath-stent to renal). No: Pacemaker Amputation: No Fractures: No - *Social History Smoking Status: Current every day smoker Tobacco Type: cigarettes # Packs/Day (cigarettes): 0 Alcohol Intake: never Alcohol Intake Frequency:: other Substance Use Type: denies use Occupational Status: unemployed Housing: house Household Members: spouse - Psychiatric History Expresses thoughts of harming self/others: None Suicide Plan Description: No Plan *Family Hx:: Unable to obtain Review of Systems - Review of Systems ROS General: no recent weight change, no fever, no sleep disturbances Respiratory: no cough, no shortness of air, no recurring pulmonary infections Cardiovascular/Peripheral Vascular: No chest pain, No palpitations, no edema, no shortness of breath. Gastrointestinal: no incontinence, normal bowel movements reported Genitourinary: no incontinence
== END ==
PROVIDERS: Family Provider Emergency Medicine; PCP Emergency Medicine; Visit Provider Clinical Nurse Specialist Family Health
DX: G57.92 Unspecified mononeuropathy of left lower limb (principal); G62.9 Polyneuropathy, unspecified; M79.672 Pain in left foot; I73.9 Peripheral vascular disease, unspecified
CPT/HCPCS: 99202

== ENCOUNTER → 2017-10-08 08:52 | Outpatient (REF) | payer MEDICAID, SELFPAY ==
[2017-10-08 18:30] LABS: Amphetamine/Metha Screen,Urine Negative ng/mL (<1000); Barbiturates Screen,Urine Negative ng/mL (<200); Benzodiazepines Screen,Urine Negative ng/mL (200); Cannabinoid Screen,Urine Negative ng/mL (<50); Cocaine Screen,Urine Negative ng/g (<300); Methadone Screen,Urine Negative ng/mL (<300); Opiate Screen,Urine Negative ng/mL (<300); Phencyclidine Screen,Urine Negative ng/mL (<25)
== END ==
LOC: LAB 08:52
PROVIDERS: Visit Provider Emergency Medicine
DX: Z79.899 Other long term (current) drug therapy (principal)
CPT/HCPCS: 80305

== ENCOUNTER → 2018-02-18 13:20 | Outpatient (REF) | payer MEDICAID, SELFPAY ==
[2018-02-18 18:36] LABS: Amphetamine/Metha Screen,Urine Negative ng/mL (<1000); Barbiturates Screen,Urine Negative ng/mL (<200); Benzodiazepines Screen,Urine Negative ng/mL (<200); Cannabinoid Screen,Urine Negative ng/mL (<50); Cocaine Screen,Urine Negative ng/mL (<300); Methadone Screen,Urine Negative ng/mL (<300); Opiate Screen,Urine Positive ng/mL (<300); Phencyclidine Screen,Urine Negative ng/mL (<25)
== END ==
LOC: LAB 13:20
PROVIDERS: Visit Provider Emergency Medicine
DX: Z79.891 Long term (current) use of opiate analgesic (principal)
CPT/HCPCS: 80305

== ENCOUNTER → 2018-03-19 16:30 | Outpatient (CLI) | payer MEDICAID, SELFPAY ==
[2018-03-20 15:16] LABS: Amphetamine/Metha Screen,Urine Negative ng/mL (<1000); Barbiturates Screen,Urine Negative ng/mL (<200); Benzodiazepines Screen,Urine Negative ng/mL (<200); Cannabinoid Screen,Urine Negative ng/mL (<50); Cocaine Screen,Urine Negative ng/mL (<300); Methadone Screen,Urine Negative ng/mL (<300); Opiate Screen,Urine Positive ng/mL (<300); Phencyclidine Screen,Urine Negative ng/mL (<25)
== END ==
LOC: LAB 03-20 14:32 → LAB.DROPOF 03-20 14:37
PROVIDERS: PCP Emergency Medicine; Visit Provider Emergency Medicine
DX: Z79.899 Other long term (current) drug therapy (principal)
CPT/HCPCS: 80305

== ENCOUNTER → 2018-03-30 14:32 | Outpatient (CLI) | payer MEDICAID, SELFPAY ==
--- NOTE | 2018-03-30 14:35 | US_ITS ---
US Arterial Ankle Brachial Ind History: Claudication, current smoker, rest pain, hypertension ORDERING PHYSICIAN: Julius Collins MD PATIENT AGE: 47 years TECHNIQUE: Segmental pressures obtained of both right and left leg. These are compared to brachial blood pressure to yield index at each level sampled including summary LEMUEL. The data sheets from the procedure are available in PACS FINDINGS Rest study only performed today No prior studies available for comparison. Blood pressures reported are in millimeters mercury. RIGHT LEG LEMUEL = .7. RIGHT LEG TBI=.6 Brachial BP: 142 Thigh BP: 140 Calf BP: 127 Ankle PT: 104 Ankle DP : 92 Digit =85 LEFT LEG LEMUEL = .5 LEFT LEG TBI= .3 Brachial BPD: 136 Thigh BP: 144 Calf BP: 80 Ankle PT:74 Ankle DP: 74 Digit = 40 Pulses and waveforms: Diminished pulses bilaterally with the waveforms left greater than right IMPRESSION: Abnormal depressed ankle-brachial index bilaterally left more severe than right consistent with moderate arterial disease
== END ==
PROVIDERS: PCP Emergency Medicine; Visit Provider Internal Medicine Cardiovascular Disease
DX: G57.92 Unspecified mononeuropathy of left lower limb (principal); I73.9 Peripheral vascular disease, unspecified; I15.0 Renovascular hypertension; M79.672 Pain in left foot; I10 Essential (primary) hypertension; J43.9 Emphysema, unspecified; Z72.0 Tobacco use
CPT/HCPCS: 93922

== ENCOUNTER → 2018-04-20 14:41 | Outpatient (CLI) | payer MEDICAID, SELFPAY ==
[2018-04-20 15:20] LABS: Amphetamine/Metha Screen,Urine Negative ng/mL (<1000); Barbiturates Screen,Urine Negative ng/mL (<200); Benzodiazepines Screen,Urine Negative ng/mL (<200); Cannabinoid Screen,Urine Negative ng/mL (<50); Cocaine Screen,Urine Negative ng/mL (<300); Methadone Screen,Urine Negative ng/mL (<300); Opiate Screen,Urine Positive ng/mL (<300); Phencyclidine Screen,Urine Negative ng/mL (<25)
== END ==
PROVIDERS: Visit Provider Emergency Medicine
DX: R09.81 Nasal congestion (principal); Z79.899 Other long term (current) drug therapy
CPT/HCPCS: 80305

== ENCOUNTER → 2018-04-27 14:15 | Outpatient (POV) | payer MEDICAID, SELFPAY ==
[2018-04-27 14:29] VITALS: BP 130/89; PULSE 82; RESP 18; O2SAT 99; BMI 28.5
--- NOTE | 2018-04-27 15:02 | P.CONS_ITS ---
[facility] Pain Management SOAP Note Subjective:: Patient is a pleasant 47-year-old white female who presents today for follow-up. At her last visit she was given information on a DRG stimulator. Patient has decided she does not want to go forward with this plan. Patient has a appointment to have stents placed in her leg. She rates her pain a 10 out of 10. She is asking for additional pain medicine I discussed with her we would not be managing any of her pain medicine. ROS General: no recent weight change, no fever, no sleep disturbances Respiratory: no cough, no shortness of air, no recurring pulmonary infections Cardiovascular/Peripheral Vascular: No chest pain, No palpitations, no edema, no shortness of breath. Gastrointestinal: no incontinence, normal bowel movements reported Genitourinary: no incontinence Musculoskeletal: Leg pain Psychiatric: normal mood/ affect Neurological: [denies weakness in extremities], [denies balance issues] Objective:: Physical Exam General: Alert and oriented x3, no acute distress, pleasant and cooperative, [on room air] Lungs: Resps E/U, Symmetrical chest expansion, Eyes: PERRL Musculoskeletal: Flexion and extension of lumbar spine somewhat guarded secondary to pain, deep tendon reflexes normal, strength in upper and lower extremities [5/5], [abnormal gait noted] Neurological: speech clear, fiber optics technician equal, no gross sensory deficits Assessment:: Peripheral artery disease, left foot pain, neuropathy Plan:: We will see the patient after her vascular surgery. Patient's been instructed to call the office if she has any questions prior to her next appointment. This note was dictated using voice recognition software and may contain errors or omissions
== END ==
PROVIDERS: PCP Emergency Medicine; Visit Provider Clinical Nurse Specialist Family Health
DX: I73.9 Peripheral vascular disease, unspecified (principal); M79.672 Pain in left foot; G62.9 Polyneuropathy, unspecified; M62.9 Disorder of muscle, unspecified
CPT/HCPCS: 99213

== ENCOUNTER → 2018-05-21 13:41 | Outpatient (CLI) | payer MEDICAID, SELFPAY ==
[2018-05-21 14:47] LABS: Amphetamine/Metha Screen,Urine Negative ng/mL (<1000); Barbiturates Screen,Urine Negative ng/mL (<200); Benzodiazepines Screen,Urine Negative ng/mL (<200); Cannabinoid Screen,Urine Negative ng/mL (<50); Cocaine Screen,Urine Negative ng/mL (<300); Methadone Screen,Urine Negative ng/mL (<300); Opiate Screen,Urine Positive ng/mL (<300); Phencyclidine Screen,Urine Negative ng/mL (<25)
[2018-05-28 09:23] LABS: Alprazolam Negative (Cutoff=100); Benzodiazepines Negative ng/mL (Cutoff=100); Clonazepam Negative (Cutoff=100); Flurazepam Negative (Cutoff=100); Lorazepam Negative (Cutoff=100); Midazolam Negative (Cutoff=100); Temazepam Negative (Cutoff=100); Triazolam Negative (Cutoff=100)
== END ==
PROVIDERS: Visit Provider Emergency Medicine
DX: Z79.891 Long term (current) use of opiate analgesic (principal)
CPT/HCPCS: 80305; 80346

== ENCOUNTER → 2018-07-17 16:00 | Outpatient (CLI) | payer MEDICAID, SELFPAY ==
[2018-07-17 18:08] LABS: Amphetamine/Metha Screen,Urine Negative ng/mL (<1000); Barbiturates Screen,Urine Negative ng/mL (<200); Benzodiazepines Screen,Urine Negative ng/mL (<200); Cannabinoid Screen,Urine Negative ng/mL (<50); Cocaine Screen,Urine Negative ng/mL (<300); Methadone Screen,Urine Negative ng/mL (<300); Opiate Screen,Urine Positive ng/mL (<300); Phencyclidine Screen,Urine Negative ng/mL (<25)
[2018-07-24 16:25] LABS: Alprazolam Negative (Cutoff=100); Benzodiazepines Negative ng/mL (Cutoff=100); Clonazepam Negative (Cutoff=100); Flurazepam Negative (Cutoff=100); Lorazepam Negative (Cutoff=100); Midazolam Negative (Cutoff=100); Temazepam Negative (Cutoff=100); Triazolam Negative (Cutoff=100)
== END ==
PROVIDERS: Visit Provider Emergency Medicine
DX: Z79.899 Other long term (current) drug therapy (principal)
CPT/HCPCS: 80305; 80346

== ENCOUNTER → 2018-10-14 17:01 | Outpatient (CLI) | payer MEDICAID, SELFPAY ==
[2018-10-14 19:50] LABS: Amphetamine/Metha Screen,Urine Negative ng/mL (<1000); Barbiturates Screen,Urine Negative ng/mL (<200); Benzodiazepines Screen,Urine Negative ng/mL (<200); Cannabinoid Screen,Urine Negative ng/mL (<50); Cocaine Screen,Urine Negative ng/mL (<300); Methadone Screen,Urine Negative ng/mL (<300); Opiate Screen,Urine Negative ng/mL (<300); Phencyclidine Screen,Urine Negative ng/mL (<25)
[2018-10-14 20:18] LABS: Anion Gap 14.7 mEq/L (5-15); Blood Urea Nitrogen 13 mg/dL (7-18); Calcium 8.8 mg/dL (8.5-10.1); Carbon Dioxide 21 mmol/L (21.0-32.0); Chloride 110 mmol/L (98-107); Creatinine,Serum 1.71 mg/dL (0.55-1.02); Estimated Glomerular Filt Rate 32 ml/min (>60); GFR (African American) 38 ML/MIN (>60); Glucose 84 mg/dL (74-106); Potassium 3.7 mmoL/L (3.5-5.1); Sodium 142 mmol/L (136-145)
[2018-10-20 18:25] LABS: Alprazolam Negative (Cutoff=100); Benzodiazepines Positive ng/mL (Cutoff=100); Clonazepam Positive (.); Flurazepam Negative (Cutoff=100); Lorazepam Negative (Cutoff=100); Midazolam Negative (Cutoff=100); Temazepam Negative (Cutoff=100); Triazolam Negative (Cutoff=100)
[2018-10-23 06:17] LABS: Clonazepam Confirm 218 ng/mL (Cutoff=100); Opiates Negative ng/mL (Cutoff=100)
== END ==
PROVIDERS: Visit Provider Emergency Medicine
DX: Z79.899 Other long term (current) drug therapy (principal); I10 Essential (primary) hypertension
CPT/HCPCS: 80048; 80305; 80346; 80361; G0480

== ENCOUNTER 2018-12-21 18:54 | Observation (INO) ==
[2018-12-21 19:56] LABS: Basophils % 0.4 % (0.1-2.0); Eosinophils # 0.2 K/mm3 (0.0-0.4); Eosinophils % 2.4 % (0.1-12.0); Hematocrit 57.7 % (37.0-47.0); Lymphocytes # 1.1 K/mm3 (0.7-4.5); Lymphocytes % 15.9 % (10-50); Mean Corpuscular HGB Conc 32.2 g/dL (31.8-35.4); Mean Corpuscular Volume 87.2 fl (81-99); Mean Platelet Volume 7.5 fl (7.4-10.4); Monocytes # 0.4 K/mm3 (0.1-1.0); Monocytes % 5.2 % (1.7-9.3); Neutrophils # 5.3 K/mm3 (1.8-7.8); Neutrophils % 76.1 % (37.0-80.0); Platelet Count 359 K/mm3 (142-424); Red Blood Count 6.61 M/mm3 (4.20-5.40); Red Cell Distribution Width 14.9 % (11.5-17.5)
[2018-12-21 19:59] LABS: Hemoglobin 18.7 g/dL (12.2-16.2)
[2018-12-21 20:03] LABS: Albumin Level 4.1 gm/dL (3.4-5.0); Albumin/Globulin Ratio 0.8 (1.1-1.8); Anion Gap 22.9 mEq/L (5-15); Bilirubin,Total 0.3 mg/dL (0.2-1.0); Calcium 9.3 mg/dL (8.5-10.1); Globulin 4.9 gm/dl (1.3-3.2)
--- NOTE | 2018-12-21 21:02 | Emergency Department Note ---
ED Disposition Clinical Impression: CLINT (acute kidney injury), Obesity (BMI 30.0-34.9), Tobacco use Hypothyroidism Qualifiers: Hypothyroidism type: acquired Qualified Code(s): E03.9 - Hypothyroidism, unspecified Disposition: Admitted as Observation Condition on Discharge: Good Instructions: DI for Diarrhea and Traveler's Diarrhea -- Adult, DI for Diarrhea and Traveler's Diarrhea -- Child, DI for Nausea -- Adult, DI for Nausea -- Child Referrals: Saurabh Gonzalez MD [Primary Care Provider] - - Critical Care Critical Care Time: No Attestation: On 12/21/18, the high probability of a clinically significant, sudden or life threatening deterioration of the following system(s) required my full and direct attention, intervention and personal management. The time I documented below is in addition to time spent performing reported procedures but includes the following listed in this critical care notation. Medical Decision Making - Medical Records Medical records reviewed: Yes: I reviewed the patient's medical records. - Jacinto Inquiry Pt receiving controlled substance: No Vital Signs: 12/21/18 19:11 12/21/18 20:13 12/21/18 21:25 Temperature 97.9 F Temperature Source Oral Pulse Rate [Right Brachial] 99 H 89 65 Respiratory Rate 18 18 18 Blood Pressure [Right Arm] 145/79 H 145/99 H 140/71 Blood Pressure Mean [Right Arm] 101 114 94 Blood Pressure Source [Right Arm] Automatic Cuff Automatic Cuff Blood Pressure Position [Right Arm] Sitting Sitting 02 Sat by Pulse Oximetry 98 97 97 Oxygen Delivery Method Room Air Room Air Room Air - Lab Data Lab results reviewed: Yes: I reviewed the patient's lab results. Lab Results 12/21/18 19:30: WBC 7.0, RBC 6.61 H, Hgb 18.7 H*, Hct 57.7 H, MCV 87.2, MCH 28.1, MCHC 32.2, RDW 14.9, Plt Count 359, MPV 7.5, Neut % (Auto) 76.1, Lymph % (Auto) 15.9, Eddy % (Auto) 5.2, Eos % (Auto) 2.4, Baso % (Auto) 0.4, Neut # (Auto) 5.3, Lymph # (Auto) 1.1, Eddy # (Auto) 0.4, Eos # (Auto) 0.2, Baso # (Auto) 0.0 12/21/18 19:30: Sodium 136, Potassium 2.9 L*, Chloride 100, Carbon Dioxide 16 L, Anion Gap 22.9 H, BUN 39 H, Creatinine 3.17 H, Estimated Creat Clear 28, Estimated GFR 16 L*, Est GFR ( Amer) 19 L*, Glucose 95, Calcium 9.3, Total Bilirubin 0.3, AST 15, ALT 40, Alkaline Phosphatase 164 H, Total Protein 9.0 H, Albumin 4.1, Globulin 4.9 H, Albumin/Globulin Ratio 0.8 L 12/21/18 19:30: ESR 4 12/21/18 19:30: C-Reactive Protein 4.3 H 12/21/18 19:30: Lipase 161 12/21/18 21:30: Urine HCG, Qual Negative 12/21/18 21:30: Urine Color Yellow, Urine Appearance Clear, Urine pH 6.0, Ur Specific [place] >= 1.030, Urine Protein 2+, Urine Glucose (UA) Negative, Urine Ketones Negative, Urine Blood Trace-i, Urine Nitrate Negative, Urine Bilirubin Negative, Urine Urobilinogen 0.2, Ur Leukocyte Esterase Trace, Urine RBC 3-5, Urine WBC 5-10, Ur Squamous Epith Cells 10-20, Urine Bacteria 1+, Hyaline Casts 3-5, Urine Mucus 1+ Result diagrams: 12/21/18 19:30 12/21/18 19:30 Orders (Tests/Meds): ED MEDICATIONS Generic Name Dose Route Start Last Admin Trade Name Freq PRN Reason Stop Dose Admin Sodium Chloride 1,000 mls @ 999 mls/hr 12/21/18 19:30 12/21/18 19:26 Sod Chlor 0.9% 1000ml Bag IV 12/21/18 20:30 999 mls/hr .[id number] VIVIANE Administration Discontinued Medications Generic Name Dose Route Start Last Admin Trade Name Freq PRN Reason Stop Dose Admin Acetaminophen 1,000 mg 12/21/18 20:02 12/21/18 20:05 Tylenol 500mg Tablet PO 12/21/18 20:03 1,000 mg ONCE ONE Administration Ondansetron HCl 4 mg 12/21/18 19:20 12/21/18 19:26 Zofran 4mg/2ml Vial IV 08/05/19 19:21 4 mg ONCE ONE Administration Potassium Chloride 40 meq 12/21/18 22:05 Klor-Con 20meq Tablet PO 12/21/18 22:06 ONCE ONE ORDERS Category Date Time Status CT abdomen pelvis wo con Stat Cat Scan 12/21/18 21:05 Taken Troponin I Stat Lab 12/21/18 19:30 Received Urine Culture Stat Micro 12/21/18 22:04 Ordered - CT Data CT Scan: Abdomen, Pelvis Time Received: 22:[address] Reviewed: Yes: I have viewed the radiologist's interpretation Preliminary Findings: Normal/NAD Nausea/Vomiting/Diarrhea HPI - General Chief complaint: Nausea/Vomiting/Diarrhea Stated complaint: Vomiting Time Seen by Provider: 12/21/18 20:00 Mode of Arrival: Ambulatory Source of Information: Patient, Spouse, Medical Record Limitations: No Limitations Description of Symptoms (Recalled from ER Triage Doc. by RN): Pt states she has been vomiting for 2 days and unable to keep anything down. She also c/o CHENEY. NO other symptoms reported at this time. - History of Present Illness HPI Narrative: pt with vomiting w/o diarrhea or abd pain and has dec po intake - no fever MD complaint: nausea, vomiting Onset (ago): day(s) Associated Abdominal Pain: No Associated symptoms: denies other symptoms - Related Data Home Medications Medication Instructions Recorded Confirmed Amlodipine Besylate 10 mg PO DAILY 12/21/18 12/21/18 Aspirin [Low Dose Aspirin EC] See Rx Instructions .ROUTE .COMPLEX 12/21/18 12/21/18 Cilostazol [Pletal 100mg tablet] 100 mg PO BID 12/21/18 12/21/18 Gabapentin [Neurontin 800mg Tab] 800 mg PO TID 12/21/18 12/21/18 Varenicline Tartrate [Chantix See Rx Instructions PO PER PKG DIR 12/21/18 12/21/18 Starting Month Box] buPROPion HCl [Wellbutrin 75mg 75 mg PO BID 12/21/18 12/21/18 Tablet] clonazePAM [Clonazepam] 0.5 mg PO BID 12/21/18 12/21/18 Previous Rx's Medication Instructions Recorded clopidogrel 75 mg tablet 75 mg PO QDAY #90 tab 12/22/17 Allergies Allergy/AdvReac Type Severity Reaction Status Date / Time meloxicam [From MOBIC] Allergy Unknown Verified 12/21/18 19:17 Penicillins [PENICILLINS] Allergy Unknown Verified 12/21/18 19:17 ibuprofen [IBUPROFEN] AdvReac Unknown NAUSEA Verified 12/21/18 19:17 [facility] History - Hepatitis A Screen Drug use history?: No High risk sexual behaviors?: No History of sexually transmitted infection?: No Currently employed?: No Childcare worker?: No Do you have indoor plumbing?: Yes Do you have electricity?: Yes Attestation statement:: This patient has been screened for Hepatitis A risk factors. I have reviewed the patient's past medical history: Yes Medical History: Reports:: Anxiety, Chronic Obstructive Pulmonary Disease (COPD), Coronary Artery Disease, Hyperlipidemia, Hypertension, Peripheral Artery Disease Denies:: Cancer, Diabetes Mellitus Type 1, Diabetes Mellitus Type 2, Internal Pacemaker, MRSA, Seizures Other Medical History: Reports: Hypothyroidism, Other Comment: neuropathy Laterality Cases: Right: Carpal Tunnel Release Other Surgeries: Yes: Angiogram, Cardiac Catheterization, Colonoscopy, Coronary Stent, Tubal Ligation, Ureter Stent, Other (Cath-stent to renal). No: Pacemaker Amputation: No Fractures: No Comment: 5 stents in L leg. 1 Stent left Kidney - Social History Smoking Status: Current every day smoker Tobacco Type: cigarettes # Packs/Day (cigarettes): 1 Alcohol Intake: never Alcohol Intake Frequency:: other Substance Use Type: denies use Occupational Status: unemployed Housing: house Household Members: spouse - Psychiatric History Pschychiatric History:: Reports:: Anxiety Family Hx:: No significant family history ROS Obtained: Yes All systems reviewed & no additional complaints - Constitutional Constitutional: Denies fever(s) - Eyes Eyes: Denies change in vision - ENT Ears, Nose, Mouth, and Throat: Denies sore throat - Cardiovascular Cardiovascular: Denies chest pain - Respiratory Respiratory: No cough - Gastrointestinal Gastrointestingal: Reports: as per HPI, nausea, vomiting. Denies: abdominal pain, diarrhea - Genitourinary Female Genitourinary: Denies hematuria - Musculoskeletal Musculoskeletal: Denies joint pain, Denies neck pain - Integumentary/Breasts Skin/Breast: Denies rash - Neurologic Neurologic: Denies seizure-like activity Physical Exam - General General appearance: alert, in no apparent distress - Head Head exam: normocephalic - Eye Eye exam: Present: PERRL, EOMI. Absent: scleral icterus - ENT ENT exam: Present: mucous membranes dry - Neck Neck exam: Present: trachea midline - Respiratory Respiratory exam: Present: normal lung sounds bilaterally. Absent: respiratory distress - Cardiovascular Cardiovascular exam: Present: regular rate, systolic murmur, +S4 - Abdominal Exam Abdominal exam: Present: soft. Absent: tenderness, guarding, rebound - Extremities Exam Extremities exam: Present: full ROM - Neurological Exam Neurological exam: Present: alert, oriented X3, CN II-XII intact, reflexes normal - Psychiatric Psychiatric exam: Present: normal affect - Skin Skin exam: Absent: rash
[2018-12-21 21:36] LABS: Microscopic, Urine URINE MICROSCOPIC (MICROSCOPIC)
[2018-12-21 21:44] LABS: Appearance,Urine CLEAR (Clear); Blood, Urine TRACE-I (Negative); Color,Urine YELLOW (Yellow); Glucose,Urine (UA) Negative (Negative); Ketones,Urine Negative (Negative); Leukocyte Esterase,Urine TRACE (Negative); Protein,Urine 2+ (Negative); Specific Gravity, Urine >= 1.030 (1.005-1.030); Urobilinogen,Urine 0.2 EU/dl (0.2)
[2018-12-21 21:47] LABS: Bilirubin,Urine Negative (Negative)
[2018-12-21 21:57] LABS: Bacteria,Urine 1+ /lpf; Mucus,Urine 1+ /lpf
== END 2018-12-21 23:35 | disposition left against medical advice (07) ==
LOC: 2ND 18:54 → ER 18:54 → 2ND 22:47
PROVIDERS: ADMIT Emergency Medicine; ATTEND Emergency Medicine
CPT/HCPCS: 74176; 80053; 81001; 81025; 83690; 84443; 84484; 85025; 85651; 86140; 87086; 96365; 96366; 96375; 99284; G0378; J2405

== ENCOUNTER → 2019-01-11 14:01 | Outpatient (CLI) | payer MEDICAID, SELFPAY ==
[2019-01-11 14:13] LABS: Basophils % 0.7 % (0.1-2.0); Eosinophils # 0.2 K/mm3 (0.0-0.4); Eosinophils % 3.7 % (0.1-12.0); Hemoglobin 14.2 g/dL (12.2-16.2); Lymphocytes # 1.1 K/mm3 (0.7-4.5); Lymphocytes % 24.9 % (10-50); Mean Corpuscular HGB Conc 32.4 g/dL (31.8-35.4); Mean Corpuscular Volume 89.7 fl (81-99); Mean Platelet Volume 8.3 fl (7.4-10.4); Monocytes # 0.3 K/mm3 (0.1-1.0); Monocytes % 7.2 % (1.7-9.3); Neutrophils # 2.8 K/mm3 (1.8-7.8); Neutrophils % 63.5 % (37.0-80.0); Platelet Count 217 K/mm3 (142-424); Red Cell Distribution Width 15.2 % (11.5-17.5); White Blood Count 4.4 K/mm3 (4.8-10.8)
[2019-01-11 14:45] LABS: Free T4 (Free Thyroxine) 0.99 ng/dl (0.76-1.46); Thyroid Stimulating Hormone 8.21 uIU/ml (0.358-3.740)
[2019-01-13 11:24] LABS: Alanine Aminotransferase 19 U/L (12-78); Albumin Level 3.6 gm/dL (3.4-5.0); Albumin/Globulin Ratio 1.2 (1.1-1.8); Alkaline Phosphatase 86 U/L (46-116); Anion Gap 14.7 mEq/L (5-15); Aspartate Amino Transferase 16 U/L (15-37); Bilirubin,Total 0.3 mg/dL (0.2-1.0); Blood Urea Nitrogen 9 mg/dL (7-18); Carbon Dioxide 23 mmol/L (21.0-32.0); Chloride 111 mmol/L (98-107); Creatinine,Serum 1.41 mg/dL (0.55-1.02); Estimated Glomerular Filt Rate 40 ml/min (>60); GFR (African American) 48 ML/MIN (>60); Globulin 2.9 gm/dl (1.3-3.2); Glucose 78 mg/dL (74-106); Potassium 3.7 mmoL/L (3.5-5.1); Sodium 145 mmol/L (136-145); Total Protein,Serum 6.5 gm/dL (6.4-8.2)
[2019-01-13 11:36] LABS: Hemoglobin A1C 5.4 % (0.0-7.0)
[2019-01-13 17:50] LABS: Amphetamine/Metha Screen,Urine Negative ng/mL (<1000); Barbiturates Screen,Urine Negative ng/mL (<200); Benzodiazepines Screen,Urine Negative ng/mL (<200); Cannabinoid Screen,Urine Negative ng/mL (<50); Cocaine Screen,Urine Negative ng/mL (<300); Methadone Screen,Urine Negative ng/mL (<300); Opiate Screen,Urine Negative ng/mL (<300); Phencyclidine Screen,Urine Negative ng/mL (<25)
== END ==
PROVIDERS: Visit Provider Emergency Medicine
DX: R19.7 Diarrhea, unspecified (principal); Z79.899 Other long term (current) drug therapy; E11.9 Type 2 diabetes mellitus without complications
CPT/HCPCS: 80048; 80053; 80305; 83036; 84439; 84443; 85025

== ENCOUNTER → 2019-02-01 08:57 | Outpatient (CLI) | payer MEDICAID, SELFPAY ==
--- NOTE | 2019-02-01 09:00 | XR_ITS ---
PROCEDURE: XR FOOT WT BEARING RT 3V CLINICAL INDICATION: pain Pain following injury, lateral foot pain with swelling COMPARISON: FTL3 FOOT-LT-3 VIEWS from 11/07/2015 FTR3 FOOT-RT-3 VIEWS from 11/07/2015 FTL3 FOOT-LT-3 VIEWS from 10/08/2016 [id number] XR foot LT min 3V from 06/20/2017 FINDINGS: No fracture or dislocation. No lytic or blastic change. There is normal mineralization. The joint spaces are well-preserved. No significant degenerative/arthritic changes. No erosive changes evident. Other findings:None. IMPRESSION: No acute findings. Dictated by: Fred Barakat MD 02/01/2019 12:52 Electronically signed by Fred Barakat MD in [place] 02/01/2019 12:53
--- NOTE | 2019-02-01 09:00 | XR_ITS ---
PROCEDURE: XR ANKLE WT BEARING RT MIN 3V CLINICAL INDICATION: pain Posttraumatic pain, lateral ankle pain and swelling COMPARISON: No exams were available for comparison FINDINGS: No fracture, dislocation, lytic change, or blastic change evident. No significant degenerative change IMPRESSION: No acute findings. Dictated by: Fred Barakat MD 02/01/2019 12:52 Electronically signed by Fred Barakat MD in [facility] 02/01/2019 12:52
== END ==
PROVIDERS: PCP Emergency Medicine; Visit Provider Podiatrist
DX: M79.671 Pain in right foot (principal); S93.401A Sprain of unspecified ligament of right ankle, initial encounter; S93.421A Sprain of deltoid ligament of right ankle, initial encounter
CPT/HCPCS: 73610; 73630

== ENCOUNTER → 2019-03-16 17:35 | Outpatient (CLI) | payer MEDICAID, SELFPAY ==
[2019-03-16 18:28] LABS: Anion Gap 16.5 mEq/L (5-15); Blood Urea Nitrogen 12 mg/dL (7-18); Calcium 9.6 mg/dL (8.5-10.1); Carbon Dioxide 21 mmol/L (21.0-32.0); Chloride 109 mmol/L (98-107); Creatinine,Serum 1.35 mg/dL (0.55-1.02); Estimated Glomerular Filt Rate 42 ml/min (>60); GFR (African American) 50 ML/MIN (>60); Glucose 69 mg/dL (74-106); Potassium 3.5 mmoL/L (3.5-5.1); Sodium 143 mmol/L (136-145); Thyroid Stimulating Hormone 8.01 uIU/ml (0.358-3.740)
== END ==
PROVIDERS: Visit Provider Nurse Practitioner Family
DX: R79.89 Other specified abnormal findings of blood chemistry (principal)
CPT/HCPCS: 80048; 84443

== ENCOUNTER → 2019-04-13 17:15 | Outpatient (CLI) | payer MEDICAID, SELFPAY ==
[2019-04-13 19:41] LABS: Amphetamine/Metha Screen,Urine Negative ng/mL (<1000); Barbiturates Screen,Urine Negative ng/mL (<200); Benzodiazepines Screen,Urine Negative ng/mL (<200); Cannabinoid Screen,Urine Negative ng/mL (<50); Cocaine Screen,Urine Negative ng/mL (<300); Methadone Screen,Urine Negative ng/mL (<300); Opiate Screen,Urine Positive ng/mL (<300); Phencyclidine Screen,Urine Negative ng/mL (<25)
[2019-04-21 22:07] LABS: Alprazolam Negative (Cutoff=100); Benzodiazepines Positive ng/mL (Cutoff=100); Clonazepam Positive (.); Codeine Negative (Cutoff=100); Flurazepam Negative (Cutoff=100); Hydrocodone Positive (.); Hydromorphone Positive (.); Lorazepam Negative (Cutoff=100); Midazolam Negative (Cutoff=100); Morphine Negative (Cutoff=100); Temazepam Negative (Cutoff=100); Triazolam Negative (Cutoff=100)
[2019-04-22 11:15] LABS: Clonazepam Confirm 134 ng/mL (Cutoff=100); Opiates Positive (.)
== END ==
PROVIDERS: Visit Provider Nurse Practitioner Family
DX: Z79.899 Other long term (current) drug therapy (principal); F41.9 Anxiety disorder, unspecified; R89.2 Abnormal level of other drugs, medicaments and biological substances in specimens from other organs, systems and tissues
CPT/HCPCS: 80305; 80346; 80361; 80365; G0480

== ENCOUNTER → 2019-05-06 16:39 | Outpatient (CLI) | payer MEDICAID, SELFPAY ==
[2019-05-06 18:37] LABS: Amphetamine/Metha Screen,Urine Negative ng/mL (<1000); Barbiturates Screen,Urine Negative ng/mL (<200); Benzodiazepines Screen,Urine Negative ng/mL (<200); Cannabinoid Screen,Urine Negative ng/mL (<50); Cocaine Screen,Urine Negative ng/mL (<300); Methadone Screen,Urine Negative ng/mL (<300); Opiate Screen,Urine Positive ng/mL (<300); Phencyclidine Screen,Urine Negative ng/mL (<25)
== END ==
PROVIDERS: Visit Provider Nurse Practitioner Family
DX: Z79.899 Other long term (current) drug therapy (principal)
CPT/HCPCS: 80305

== ENCOUNTER → 2020-01-07 14:50 | Outpatient (CLI) | payer MEDICAID, SELFPAY ==
[2020-01-07 14:57] LABS: Basophils # 0.1 K/mm3 (0-0.2); Basophils % 0.7 % (0.1-2.0); Eosinophils # 0.2 K/mm3 (0.0-0.4); Eosinophils % 2.2 % (0.1-12.0); Hematocrit 44.4 % (37.0-47.0); Hemoglobin 14.9 g/dL (12.2-16.2); Lymphocytes # 1.4 K/mm3 (0.7-4.5); Lymphocytes % 18.3 % (10-50); Mean Corpuscular HGB Conc 33.6 g/dL (31.8-35.4); Mean Corpuscular Hemoglobin 29.6 pg (27.0-31.2); Mean Corpuscular Volume 88.1 fl (81-99); Mean Platelet Volume 9.3 fl (7.4-10.4); Monocytes # 0.4 K/mm3 (0.1-1.0); Neutrophils # 5.7 K/mm3 (1.8-7.8); Neutrophils % 73.8 % (37.0-80.0); Platelet Count 266 K/mm3 (142-424); Red Blood Count 5.04 M/mm3 (4.20-5.40); Red Cell Distribution Width 14.5 % (11.5-17.5); White Blood Count 7.7 K/mm3 (4.8-10.8)
[2020-01-07 15:13] LABS: Alanine Aminotransferase 14 U/L (12-78); Albumin/Globulin Ratio 1.3 (1.1-1.8); Alkaline Phosphatase 101 U/L (38-126); Aspartate Amino Transferase 24 U/L (14-36); Bilirubin,Total 0.4 mg/dl (0.2-1.3); Blood Urea Nitrogen 16 mg/dl (7-17); Calcium 10.2 mg/dl (8.4-10.2); Carbon Dioxide 20 mmol/L (22.0-30.0); Chloride 111 mmol/L (98-107); Chol/HDL Ratio 6.2 (1-3.5); Cholesterol 310 mg/dl (140-200); Estimated Glomerular Filt Rate 43 ml/min (>60); GFR (African American) 52 ML/MIN (>60); Globulin 3.1 g/dL (1.3-3.2); Glucose 92 mg/dl (74-100); HDL Cholesterol 50 mg/dl (40-60); Sodium 141 mmol/L (136-145); Total Protein,Serum 7.1 g/dl (6.3-8.2); Triglycerides 186 mg/dl (30-150); VLDL Cholesterol 37 mg/dL (0-40)
[2020-01-07 15:24] LABS: Direct LDL Cholesterol 206.53 mg/dL (100-129)
[2020-01-07 15:30] LABS: 25-OH Vitamin D, Total 21.6 ng/mL (30-100)
[2020-01-07 15:44] LABS: Thyroid Stimulating Hormone 4.46 uIU/mL (0.465-4.68)
== END ==
PROVIDERS: Visit Provider Emergency Medicine
DX: Z00.00 Encounter for general adult medical examination without abnormal findings (principal); I10 Essential (primary) hypertension; E78.5 Hyperlipidemia, unspecified; Z79.899 Other long term (current) drug therapy
CPT/HCPCS: 80053; 80061; 82306; 84436; 84443; 85025

== ENCOUNTER → 2020-05-17 13:32 | Outpatient (CLI) | payer MEDICAID, SELFPAY ==
[2020-05-17 13:42] LABS: Microscopic, Urine URINE MICROSCOPIC (MICROSCOPIC)
[2020-05-17 14:17] LABS: Basophils # 0.1 K/mm3 (0-0.2); Basophils % 0.8 % (0.1-2.0); Eosinophils # 0.4 K/mm3 (0.0-0.4); Eosinophils % 5.5 % (0.1-12.0); Hematocrit 44.6 % (37.0-47.0); Hemoglobin 14.3 g/dL (12.2-16.2); Lymphocytes # 1.3 K/mm3 (0.7-4.5); Lymphocytes % 19.9 % (10-50); Mean Corpuscular Hemoglobin 29.1 pg (27.0-31.2); Mean Corpuscular Volume 90.8 fl (81-99); Mean Platelet Volume 8.9 fl (7.4-10.4); Monocytes # 0.3 K/mm3 (0.1-1.0); Neutrophils # 4.6 K/mm3 (1.8-7.8); Neutrophils % 69.8 % (37.0-80.0); Platelet Count 250 K/mm3 (142-424); Red Blood Count 4.92 M/mm3 (4.20-5.40); Red Cell Distribution Width 15.2 % (11.5-17.5); White Blood Count 6.6 K/mm3 (4.8-10.8)
[2020-05-17 14:19] LABS: Appearance,Urine CLEAR (Clear); Bilirubin,Urine Negative (Negative); Blood, Urine Negative (Negative); Color,Urine YELLOW (Yellow); Glucose,Urine (UA) Negative (Negative); Ketones,Urine Negative (Negative); Leukocyte Esterase,Urine 1+ (Negative); Nitrate,Urine POSITIVE (Negative); PH,Urine 5.5 (5.0-8.5); Protein,Urine Negative (Negative); Specific Gravity, Urine 1.025 (1.005-1.030); Urobilinogen,Urine 0.2 EU/dl (0.2)
[2020-05-17 14:23] LABS: Bacteria,Urine 1+ /lpf
[2020-05-17 14:46] LABS: Creatinine,Urine Random 114 mg/dL (Not Estab.); Microalbumin < 6.000 mg/L (0-16.7)
[2020-05-17 18:02] LABS: Albumin Level 3.8 g/dl (3.5-5.0); Anion Gap 11.4 mEq/L (5-15); Blood Urea Nitrogen 15 mg/dl (7-17); Calcium 9.7 mg/dl (8.4-10.2); Carbon Dioxide 22 mmol/L (22.0-30.0); Chloride 108 mmol/L (98-107); Estimated Glomerular Filt Rate 34 ml/min (>60); GFR (African American) 41 ML/MIN (>60); Glucose 125 mg/dl (74-100); Phosphorous 3.7 mg/dl (2.5-4.5); Potassium 4.4 mmoL/L (3.5-5.1); Sodium 137 mmol/L (136-145)
[2020-05-17 18:14] LABS: Intact Parathyroid Hormone 51.2 pg/mL (7.5-53.5)
== END ==
PROVIDERS: Visit Provider Internal Medicine Nephrology
DX: N18.30 Chronic kidney disease, stage 3 unspecified (principal); E55.9 Vitamin D deficiency, unspecified; I12.9 Hypertensive chronic kidney disease with stage 1 through stage 4 chronic kidney disease, or unspecified chronic kidney disease
CPT/HCPCS: 36415; 80069; 81001; 82043; 82306; 82570; 83970; 84155; 85025; 87086; 87088; 87186

== ENCOUNTER → 2020-05-22 10:39 | Outpatient (CLI) | payer MEDICAID, SELFPAY ==
--- NOTE | 2020-05-22 10:42 | US_ITS ---
PROCEDURE: US KIDNEY CLINICAL INDICATION: HYPERTENSION, CKD STAGE 3 COMPARISON: No exams were available for comparison FINDINGS: The right kidney is [id number]. No hydronephrosis, or renal mass or perinephric fluid collection is evident. The left kidney is [id number]. No hydronephrosis, or renal mass or perinephric fluid collection is evident. There is bilateral renal cortical thinning IMPRESSION: Bilateral renal cortical thinning. No hydronephrosis. Dictated by: Fred Barakat MD 05/22/2020 17:53 Fred Barakat MD in [facility] 05/22/2020 17:53
== END ==
PROVIDERS: PCP Emergency Medicine; Visit Provider Internal Medicine Nephrology
DX: I12.9 Hypertensive chronic kidney disease with stage 1 through stage 4 chronic kidney disease, or unspecified chronic kidney disease (principal); N18.30 Chronic kidney disease, stage 3 unspecified
CPT/HCPCS: 76770

== ENCOUNTER → 2020-08-03 15:03 | Outpatient (CLI) | payer MEDICAID, SELFPAY ==
--- NOTE | 2020-08-03 15:03 | MM_ITS ---
PROCEDURE: MM DIG SCREENING MAMM BI W/CAD Digital Breast Tomosynthesis Included CLINICAL INDICATION: screening COMPARISON: MG DIG MAMMO BILAT SCREENING from 12/15/2013 TECHNIQUE: Standard CC and MLO images and 3D Tomosynthesis was obtained. R2 CAD reviewed. FINDINGS: The breasts are heterogeneously dense, may obscure small masses. No dominant mass lesion, suspicious calcification or architectural distortion is noted. Benign appearing calcifications noted in the right breast. IMPRESSION: No suspicious findings or mass lesions. BI-RAD Category: 2 Benign Finding(s) FOLLOW-UP: 1 Year Follow-up (A letter has been sent to the patient regarding results of the study.) Dictated by: Ania Brunson 08/16/2020 13:14 Aina Brunson in [facility] 08/16/2020 13:14
== END ==
PROVIDERS: PCP Emergency Medicine; Visit Provider Emergency Medicine
DX: Z12.31 Encounter for screening mammogram for malignant neoplasm of breast (principal)
CPT/HCPCS: 77063; 77067

== ENCOUNTER 2020-10-16 13:12 | Emergency (ER) | payer MEDICAID, SELFPAY ==
[2020-10-16 13:13] VITALS: BP 186/102; PULSE 88; RESP 18; TEMP 37.2; O2SAT 99; BMI 24.8
--- NOTE | 2020-10-16 13:29 | XR_ITS ---
PROCEDURE INFORMATION: Exam: XR Cervical Spine Exam date and time: 10/16/2020 1:29 PM Age: 50 years old Clinical indication: Weakness; Patient HX: Pain in hands and arms; Additional info: Hand pain TECHNIQUE: Imaging protocol: XR of the cervical spine. Views: 2 or 3 views. COMPARISON: No relevant prior studies available. FINDINGS: Bones/joints: The cervical spine demonstrates mild degenerative changes at multiple levels. The facet joints demonstrate mild degenerative hypertrophy and sclerosis. There is no evidence of acute fracture. Mild disc space narrowing and bilateral neural foraminal narrowing noted at C4-C5 and to lesser extent C3-C4. Soft tissues: There are no soft tissue masses or fluid collections. IMPRESSION: 1. The cervical spine demonstrates mild degenerative changes at multiple levels. 2. No evidence of acute fracture. 3. Mild disc space narrowing and bilateral neural foraminal narrowing noted at C4-C5 and to lesser extent C3-C4.
--- NOTE | 2020-10-16 13:30 | HMH.EDGENADL ---
ED Disposition Clinical Impression: Hypokalemia, Renal insufficiency Disposition: Home, Self-Care Condition on Discharge: Undetermined Instructions: Acute Kidney Injury, DI for Hypokalemia Additional Instructions: You have been evaluated for hand weakness. This is likely due to critically low potassium. Please take 40 mEq of potassium daily. Follow-up with Dr. Gonzalez as soon as possible, within the next 1 to 2 days. Low potassium can be dangerous and deadly. Please return to the emergency department at once if you have any new or worsening symptoms, weakness, palpitations, other concerns. Prescriptions: Potassium Chloride [Klor-con 20 mEq tablet] 40 meq PO DAILY #30 tab Transmission [facility]: [facility] Referrals: Saurabh Gonzalez MD [Primary Care Provider] - Time of Disposition: 17:16 - Critical Care Critical Care Time: No Attestation: On 10/16/20, the high probability of a clinically significant, sudden or life threatening deterioration of the following system(s) required my full and direct attention, intervention and personal management. The time I documented below is in addition to time spent performing reported procedures but includes the following listed in this critical care notation. Medical Decision Making - Medical Records Medical records reviewed: Yes: I reviewed the patient's medical records. - Jacinto Inquiry Pt receiving controlled substance: No Vital Signs: 10/16/20 13:13 10/16/20 16:30 10/16/20 17:00 Temperature 98.9 F Temperature Source Oral Pulse Rate 69 74 Pulse Rate [Right Radial] 88 Respiratory Rate 18 Blood Pressure 169/97 H 169/100 H Blood Pressure [Right Arm] 186/102 H Blood Pressure Mean 121 123 Blood Pressure Mean [Right Arm] 130 Blood Pressure Position 02 Sat by Pulse Oximetry 99 100 99 Oxygen Delivery Method Room Air 10/16/20 17:30 10/16/20 18:41 Temperature 98 F Temperature Source Oral Pulse Rate 75 78 Pulse Rate [Right Radial] Respiratory Rate 20 16 Blood Pressure 160/98 H 135/74 Blood Pressure [Right Arm] Blood Pressure Mean 131 Blood Pressure Mean [Right Arm] Blood Pressure Position Sitting 02 Sat by Pulse Oximetry 100 Oxygen Delivery Method Room Air - Lab Data Lab Results 10/16/20 13:45: WBC 8.9, RBC 5.14, Hgb 14.5, Hct 43.5, MCV 84.6, MCH 28.3, MCHC 33.4, RDW 16.0, Plt Count 330, MPV 8.2, Neut % (Auto) 75.8, Lymph % (Auto) 15.8, Real % (Auto) 5.9, Eos % (Auto) 1.9, Baso % (Auto) 0.5, Neut # (Auto) 6.8, Lymph # (Auto) 1.4, Real # (Auto) 0.5, Eos # (Auto) 0.2, Baso # (Auto) 0.1 10/16/20 13:45: Sodium 144, Potassium 1.9 L*, Chloride 113 H, Carbon Dioxide 21 L, Anion Gap 11.9, BUN 10, Creatinine 1.80 H, Estimated Creat Clear 41, Estimated GFR 30 L, Est GFR ( Amer) 36 L, Glucose 140 H, Calcium 9.4, Total Bilirubin 0.5, AST 35, ALT 30, Alkaline Phosphatase 99, Total Creatine Kinase 447 H, Total Protein 7.3, Albumin 4.2, Globulin 3.1, Albumin/Globulin Ratio 1.4 10/16/20 13:45: Phosphorus 2.7, Magnesium 2.2 10/16/20 16:00: Sodium 145, Potassium 2.2 L*, Chloride 115 H, Carbon Dioxide 22, Anion Gap 10.2, BUN 9, Creatinine 1.70 H, Estimated Creat Clear 43, Estimated GFR 32 L, Est GFR ( Amer) 38 L, Glucose 99 D, Calcium 9.6 Result diagrams: 10/16/20 13:45 10/16/20 16:00 Orders (Tests/Meds): ED MEDICATIONS Discontinued Medications Generic Name Dose Route Start Last Admin Trade Name Freq PRN Reason Stop Dose Admin Potassium Chloride/Water 100 mls @ 100 mls/hr 10/16/20 14:26 10/16/20 16:15 Potassium Chloride 10meq/100ml Ivpb IV 10/16/20 16:25 100 mls/hr Q1H VIVIANE Administration Potassium Chloride/Water 100 mls @ 100 mls/hr 10/16/20 17:13 10/16/20 17:23 Potassium Chloride 10meq/100ml Ivpb IV 10/16/20 18:12 100 mls/hr ONCE ONE Administration Sodium Chloride 1,000 mls @ 999 mls/hr 10/16/20 17:15 10/16/20 17:23 Sod Chlor 0.9% 1000ml Bag IV 10/16/20 18:15 999 ml
[2020-10-16 14:20] LABS: Alanine Aminotransferase 30 U/L (12-78); Albumin Level 4.2 g/dl (3.5-5.0); Albumin/Globulin Ratio 1.4 (1.1-1.8); Alkaline Phosphatase 99 U/L (38-126); Anion Gap 11.9 mEq/L (5-15); Aspartate Amino Transferase 35 U/L (14-36); Bilirubin,Total 0.5 mg/dl (0.2-1.3); Blood Urea Nitrogen 10 mg/dl (7-17); Calcium 9.4 mg/dl (8.4-10.2); Carbon Dioxide 21 mmol/L (22.0-30.0); Chloride 113 mmol/L (98-107); Creatine Kinase 447 U/L (30-135); Creatinine Clearance Estimated 41 mL/min (50-200); Estimated Glomerular Filt Rate 30 ml/min (>60); GFR (African American) 36 ML/MIN (>60); Globulin 3.1 g/dL (1.3-3.2); Glucose 140 mg/dl (74-100); Sodium 144 mmol/L (136-145); Total Protein,Serum 7.3 g/dl (6.3-8.2)
[2020-10-16 14:21] LABS: Magnesium 2.2 mg/dl (1.6-2.3); Phosphorous 2.7 mg/dl (2.5-4.5)
[2020-10-16 14:23] LABS: Potassium 1.9 mmoL/L (3.5-5.1)
--- NOTE | 2020-10-16 14:29 | ECG_ITS ---
APPROVED REPORT Exam: Resting ECG HR:86 bpm ECG Measurements Heart Rate 86 AXES OR 190 P 56 QRSd 86 QRS 36 QT 370 T 53 QTc 442 Conclusion Normal sinus rhythm RSR' or QR pattern in V1 suggests right ventricular conduction delay Borderline ECG Electronically signed by : Glenroy Winter, 10/17/2020 19:51:28
[2020-10-16 14:40] LABS: Basophils # 0.1 K/mm3 (0-0.2); Basophils % 0.5 % (0.1-2.0); Eosinophils # 0.2 K/mm3 (0.0-0.4); Eosinophils % 1.9 % (0.1-12.0); Hematocrit 43.5 % (37.0-47.0); Hemoglobin 14.5 g/dL (12.2-16.2); Lymphocytes # 1.4 K/mm3 (0.7-4.5); Lymphocytes % 15.8 % (10-50); Mean Corpuscular HGB Conc 33.4 g/dL (31.8-35.4); Mean Corpuscular Hemoglobin 28.3 pg (27.0-31.2); Mean Corpuscular Volume 84.6 fl (81-99); Mean Platelet Volume 8.2 fl (7.4-10.4); Monocytes # 0.5 K/mm3 (0.1-1.0); Monocytes % 5.9 % (1.7-9.3); Neutrophils # 6.8 K/mm3 (1.8-7.8); Neutrophils % 75.8 % (37.0-80.0); Platelet Count 330 K/mm3 (142-424); Red Blood Count 5.14 M/mm3 (4.20-5.40); White Blood Count 8.9 K/mm3 (4.8-10.8)
[2020-10-16 16:30] VITALS: BP 169/97; PULSE 69; O2SAT 100
[2020-10-16 16:41] LABS: Anion Gap 10.2 mEq/L (5-15); Blood Urea Nitrogen 9 mg/dl (7-17); Calcium 9.6 mg/dl (8.4-10.2); Carbon Dioxide 22 mmol/L (22.0-30.0); Chloride 115 mmol/L (98-107); Creatinine Clearance Estimated 43 mL/min (50-200); Estimated Glomerular Filt Rate 32 ml/min (>60); GFR (African American) 38 ML/MIN (>60); Glucose 99 mg/dl (74-100); Sodium 145 mmol/L (136-145)
[2020-10-16 16:57] LABS: Potassium 2.2 mmoL/L (3.5-5.1)
--- NOTE | 2020-10-16 16:57 | PC.NURSE ---
critical potassium results reported to MICKY CRUZ at this time
[2020-10-16 17:00] VITALS: BP 169/100; PULSE 74; O2SAT 99
--- NOTE | 2020-10-16 17:12 | PC.NURSE ---
Ordered food tray for patient.
[2020-10-16 17:30] VITALS: BP 160/98; PULSE 75; RESP 20; O2SAT 100
[2020-10-16 18:41] VITALS: BP 135/74; PULSE 78; RESP 16; TEMP 36.6; O2SAT 98
== END 2020-10-16 18:43 | disposition home or self-care (01) ==
PROVIDERS: Emergency Provider Emergency Medicine; PCP Emergency Medicine
DX: E87.6 Hypokalemia (principal); N28.9 Disorder of kidney and ureter, unspecified; M62.81 Muscle weakness (generalized); F41.9 Anxiety disorder, unspecified; J44.9 Chronic obstructive pulmonary disease, unspecified; I10 Essential (primary) hypertension; E03.9 Hypothyroidism, unspecified; E78.5 Hyperlipidemia, unspecified; F17.210 Nicotine dependence, cigarettes, uncomplicated
CPT/HCPCS: 72040; 80048; 80053; 82550; 83735; 84100; 85025; 93005; 96365; 96367; 99283; U0003

== ENCOUNTER 2020-10-17 07:13 | Inpatient (IN) | payer MEDICAID, SELFPAY ==
[2020-10-17] VITALS (12 sets, daily range): BP systolic 135–160; BP diastolic 81–103; PULSE 67–86; RESP 16–20; TEMP 36.5–36.8; O2SAT 96–100; BMI 24.8; BMI 24.9
--- NOTE | 2020-10-17 07:28 | ECG_ITS ---
APPROVED REPORT Exam: Resting ECG HR:75 bpm ECG Measurements Heart Rate 75 AXES NE 198 P 56 QRSd 98 QRS 34 QT 380 T 47 QTc 424 Conclusion Normal sinus rhythm with sinus arrhythmia Incomplete right bundle branch block Borderline ECG Electronically signed by : Glenroy Winter, 10/17/2020 19:49:44
[2020-10-17 07:39] LABS: Microscopic, Urine URINE MICROSCOPIC (MICROSCOPIC)
[2020-10-17 07:42] LABS: Basophils % 0.5 % (0.1-2.0); Eosinophils # 0.2 K/mm3 (0.0-0.4); Eosinophils % 1.8 % (0.1-12.0); Hematocrit 40.5 % (37.0-47.0); Hemoglobin 13.5 g/dL (12.2-16.2); Lymphocytes # 1.2 K/mm3 (0.7-4.5); Lymphocytes % 14.5 % (10-50); Mean Corpuscular HGB Conc 33.4 g/dL (31.8-35.4); Mean Corpuscular Hemoglobin 28.7 pg (27.0-31.2); Mean Corpuscular Volume 85.9 fl (81-99); Monocytes # 0.3 K/mm3 (0.1-1.0); Monocytes % 3.5 % (1.7-9.3); Neutrophils # 6.6 K/mm3 (1.8-7.8); Neutrophils % 79.7 % (37.0-80.0); Platelet Count 328 K/mm3 (142-424); Red Blood Count 4.71 M/mm3 (4.20-5.40); White Blood Count 8.2 K/mm3 (4.8-10.8)
[2020-10-17 07:43] LABS: Appearance,Urine CLEAR (Clear); Bilirubin,Urine Negative (Negative); Blood, Urine TRACE-I (Negative); Color,Urine YELLOW (Yellow); Glucose,Urine (UA) Negative (Negative); Ketones,Urine Negative (Negative); Leukocyte Esterase,Urine Negative (Negative); Nitrate,Urine Negative (Negative); PH,Urine 6.5 (5.0-8.5); Protein,Urine Negative (Negative); Specific Gravity, Urine <= 1.005 (1.005-1.030); Urobilinogen,Urine 0.2 EU/dl (0.2)
--- NOTE | 2020-10-17 07:49 | HMH.EDWEAK ---
ED Disposition Clinical Impression: Hypokalemia Hypothyroidism Qualifiers: Hypothyroidism type: acquired Qualified Code(s): E03.9 - Hypothyroidism, unspecified Disposition: Admitted As Inpatient Condition on Discharge: Good - Critical Care Critical Care Time: No Attestation: On 10/17/20, the high probability of a clinically significant, sudden or life threatening deterioration of the following system(s) required my full and direct attention, intervention and personal management. The time I documented below is in addition to time spent performing reported procedures but includes the following listed in this critical care notation. Medical Decision Making - Medical Records Medical records reviewed: Yes: I reviewed the patient's medical records. - Jacinto Inquiry Pt receiving controlled substance: No Vital Signs: 10/17/20 07:14 10/17/20 07:30 10/17/20 08:00 Temperature 97.7 F Temperature Source Oral Pulse Rate 82 76 Pulse Rate [Right Radial] 86 Respiratory Rate 18 16 16 Blood Pressure 158/82 H 153/91 H Blood Pressure [Right Arm] 156/84 H Blood Pressure Mean 116 115 Blood Pressure Mean [Right Arm] 108 Blood Pressure Source [Right Arm] Automatic Cuff Blood Pressure Position [Right Arm] Sitting 02 Sat by Pulse Oximetry 99 96 97 Oxygen Delivery Method Room Air - Lab Data Lab results reviewed: Yes: I reviewed the patient's lab results. Lab Results 10/17/20 07:25: WBC 8.2, RBC 4.71, Hgb 13.5, Hct 40.5, MCV 85.9, MCH 28.7, MCHC 33.4, RDW 16.0, Plt Count 328, MPV 8.0, Neut % (Auto) 79.7, Lymph % (Auto) 14.5, [place] % (Auto) 3.5, Eos % (Auto) 1.8, Baso % (Auto) 0.5, Neut # (Auto) 6.6, Lymph # (Auto) 1.2, [place] # (Auto) 0.3, Eos # (Auto) 0.2, Baso # (Auto) 0.0 10/17/20 07:25: Sodium 146 H, Potassium 1.8 L*, Chloride 121 H, Carbon Dioxide 18 L, Anion Gap 8.8, BUN 7, Creatinine 1.60 H, Estimated Creat Clear 46, Estimated GFR 34 L, Est GFR ( Amer) 41 L, Glucose 107 H, Calcium 9.3, Total Bilirubin 0.6, AST 40 H, ALT 25, Alkaline Phosphatase 105, Troponin I 0.06 H, Total Protein 6.8, Albumin 3.9, Globulin 2.9, Albumin/Globulin Ratio 1.3 10/17/20 07:25: Urine Color Yellow, Urine Appearance Clear, Urine pH 6.5, Ur Specific [place] <= 1.005, Urine Protein Negative, Urine Glucose (UA) Negative, Urine Ketones Negative, Urine Blood Trace-i, Urine Nitrate Negative, Urine Bilirubin Negative, Urine Urobilinogen 0.2, Ur Leukocyte Esterase Negative, Urine RBC 3-5, Urine WBC 3-5, Ur Squamous Epith Cells Occasional, Urine Bacteria None 10/17/20 07:25: Magnesium 2.0 Result diagrams: 10/17/20 07:25 10/17/20 07:25 Orders (Tests/Meds): ED MEDICATIONS Generic Name Dose Route Start Last Admin Trade Name Freq PRN Reason Stop Dose Admin Potassium Chloride/Water 100 mls @ 50 mls/hr 10/17/20 08:07 10/17/20 08:12 Potassium Chloride 20meq/100ml Ivpb IV 10/17/20 10:06 50 mls/hr ONCE ONE Administration Sodium Chloride 1,000 mls @ 999 mls/hr 10/17/20 08:15 10/17/20 08:13 Sod Chlor 0.9% 1000ml Bag IV 10/17/20 09:15 999 mls/hr .Q1H1M VIVIANE Administration Discontinued Medications Generic Name Dose Route Start Last Admin Trade Name Freq PRN Reason Stop Dose Admin Potassium Chloride 40 meq 10/17/20 08:07 10/17/20 08:13 Potassium Chloride 20meq Tab PO 10/17/20 08:08 40 meq ONCE ONE Administration ORDERS Category Date Time Status Troponin I Q3H Lab 10/17/20 10:30 Ordered Troponin I Q3H Lab 10/17/20 13:30 Ordered - ECG Data Tracing #1 Normal Sinus Rhythm: Yes Ischemic changes: non-specific ST-T wave changes Weakness HPI - General Chief complaint: Weakness Stated complaint: weak, legs weak, hands drawing Time Seen by Provider: 10/17/20 07:30 Mode of Arrival: EMS Source of Information: Patient, EMS, Medical Record Limitations: No Limitations Description of Symptoms (Recalled from ER Triage Doc. by RN): Pt reports leg weakness, states her jocy hands are drawing
[2020-10-17 07:50] LABS: Alanine Aminotransferase 25 U/L (12-78); Albumin Level 3.9 g/dl (3.5-5.0); Albumin/Globulin Ratio 1.3 (1.1-1.8); Alkaline Phosphatase 105 U/L (38-126); Anion Gap 8.8 mEq/L (5-15); Aspartate Amino Transferase 40 U/L (14-36); Bilirubin,Total 0.6 mg/dl (0.2-1.3); Blood Urea Nitrogen 7 mg/dl (7-17); Calcium 9.3 mg/dl (8.4-10.2); Carbon Dioxide 18 mmol/L (22.0-30.0); Chloride 121 mmol/L (98-107); Creatinine Clearance Estimated 46 mL/min (50-200); Estimated Glomerular Filt Rate 34 ml/min (>60); GFR (African American) 41 ML/MIN (>60); Globulin 2.9 g/dL (1.3-3.2); Glucose 107 mg/dl (74-100); Sodium 146 mmol/L (136-145); Total Protein,Serum 6.8 g/dl (6.3-8.2)
[2020-10-17 07:53] LABS: Potassium 1.8 mmoL/L (3.5-5.1)
--- NOTE | 2020-10-17 07:53 | PC.NURSE ---
critical potassium 1.8 notified MICKY CRUZ
--- NOTE | 2020-10-17 07:55 | PC.NURSE ---
notified care management of admission, spoke with billy
[2020-10-17 07:57] LABS: Squamous Epithelial Cell,Urine Occasional #/hpf (0-5)
--- NOTE | 2020-10-17 07:59 | PC.NURSE ---
assisted pt with bedpan
[2020-10-17 08:02] LABS: Troponin I 0.06 ng/ml (0.00-0.034)
--- NOTE | 2020-10-17 08:06 | CT_ITS ---
PROCEDURE: CT HEAD/BRAIN WO CON CLINICAL INDICATION: change in mental status Altered mental status, altered level of consciousness, confusion, disorientation COMPARISON: No exams were available for comparison TECHNIQUE: Axial images obtained. All CT scans at the facility use one or more dose reduction, viz: automated exposure control, ma/kV adjustment per patient size (including targeted exams where dose is matched to indication, i.e. head), or iterative reconstruction technique. FINDINGS: No midline shift, mass effect, intracranial hemorrhage, hydrocephalus, or extra-axial fluid collection is evident. The calvarium has an unremarkable appearance. No mastoid effusion. There is minimal mucosal thickening of the ethmoid sinuses. No sinus air-fluid levels evident. IMPRESSION: No acute intracranial finding Dictated by: Fred Barakat MD 10/17/2020 08:45 Fred Barakat MD in [place] 10/17/2020 08:45
--- NOTE | 2020-10-17 08:08 | CT_ITS ---
PROCEDURE: CT ABDOMEN PELVIS WO CON CLINICAL INDICATION: abd pain COMPARISON: CT CT ABDOMEN PELVIS WO CON from 12/21/2018 TECHNIQUE: Axial images obtained with sagittal and coronal reformats. All CT scans at the facility use one or more dose reduction, viz: automated exposure control, ma/kV adjustment per patient size (including targeted exams where dose is matched to indication, i.e. head), or iterative reconstruction technique. FINDINGS: LOWER THORAX: Atelectatic changes are present in the lung bases posteriorly. There is a small pneumatocele in the right lower lobe laterally at 1 cm with some scarring in the right lung base adjacent to the pneumatocele. Calcified granulomas present in the left lower lobe. ABDOMEN & PELVIS: The liver, gallbladder, spleen and pancreas have an unremarkable appearance. There is a 2 cm left adrenal nodule with density measurements consistent with an adenoma. This is not significantly changed. There is mild prominence of the renal collecting system on both sides. No renal or ureteral calculi are evident. No bladder stones apparent. There is a small cystocele along the right lateral aspect of the urinary bladder at approximately 13 mm. No intestinal obstruction or free air. Hyperdense material is present within the fundus of the stomach and could represent recent bismuth containing medication ingestion. Unremarkable appearing appendix. No evidence of diverticulitis. There are small segmental areas of thickened appearance of the colon but may be due to nondistention. Nonemergent colonoscopy or barium enema may confirm. There are nondistended gas-filled loops of small and bowel with a few air-fluid levels which could be seen with enteritis. Bilateral tubal ligation clips are present. No pelvic mass or abnormal fluid collection. There is a left femoral artery stent in place. No acute bony anomalies. IMPRESSION: 1. Possible enteritis. 2. Other nonemergent findings as described above. Please see above for detail Dictated by: Fred Barakat MD 10/17/2020 08:59 Fred Barakat MD in [facility] 10/17/2020 08:59
[2020-10-17 08:18] LABS: Adenovirus,PCR Not Detected (NotDetected); Bordetella Pertussis Not Detected (NotDetected); Chlamydophila Pneumoniae, PCR Not Detected (NotDetected); Coronavirus 19, PCR Not Detected (NotDetected); Coronavirus 229E Not Detected (NotDetected); Coronavirus NL63 Not Detected (NotDetected); Coronavirus OC43 Not Detected (NotDetected); Coronovirus HKU1,PCR Not Detected (NotDetected); Human Metapneumovirus Not Detected (NotDetected); Influenza A, PCR Not Detected (NotDetected); Influenza AH1, 2009 Not Detected (NotDetected); Influenza AH1, PCR Not Detected (NotDetected); Influenza AH3,PCR Not Detected (NotDetected); Influenza B, PCR Not Detected (NotDetected); Mycoplasma Pneumoniae, PCR Not Detected (NotDetected); Parainfluenza 1, PCR Not Detected (NotDetected); Parainfluenza 2, PCR Not Detected (NotDetected); Parainfluenza 3, PCR Not Detected (NotDetected); Parainfluenza 4, PCR Not Detected (NotDetected); Respiratory Syncytial Virus Not Detected (NotDetected); Rhinovirus/Enterovirus Not Detected (NotDetected)
--- NOTE | 2020-10-17 08:21 | PC.NURSE ---
pt to CT
[2020-10-17 08:26] LABS: T4 (Thyroxine) 13.6 ug/dl (5.53-11.0)
[2020-10-17 08:40] LABS: Thyroid Stimulating Hormone 4.68 uIU/mL (0.465-4.68)
--- NOTE | 2020-10-17 08:43 | PC.NURSE ---
pt return from CT
--- NOTE | 2020-10-17 09:50 | PC.NURSE ---
pt voided 200cc clear urine per bedpan
--- NOTE | 2020-10-17 10:37 | PC.NURSE ---
pt voided per bedpan 200cc urine output
--- NOTE | 2020-10-17 10:55 | PC.NURSE ---
report called to Sunni Concepcion
[2020-10-17 11:52] LABS: Troponin I 0.06 ng/ml (0.00-0.034)
--- NOTE | 2020-10-17 13:35 | P.CONPHA_ITS ---
[facility] Pharmacy VTE Monitoring - Patient Demographics Admission date: 10/17/20 Report Date: 10/17/20 Time: 13:35 Allergies/Adverse Reactions: Patient Allergies meloxicam [From MOBIC] Allergy (Unknown, Verified 10/17/20 11:22) Penicillins [PENICILLINS] Allergy (Unknown, Verified 10/17/20 11:22) ibuprofen [IBUPROFEN] Adverse Reaction (Unknown, Verified 10/17/20 11:22) NAUSEA Height: 1.68 m Weight: 70.023 kg Patient Problems: Current Active Problems Hypokalemia (Acute) Hypothyroidism (Chronic) - VTE Risk Labs: VTE Related Lab Results Hgb 13.5 g/dL (12.2-16.2) 10/17/20 07:25 Hct 40.5 % (37.0-47.0) 10/17/20 07:25 Plt Count 328 K/mm3 (142-424) 10/17/20 07:25 BUN 7 mg/dl (7-17) 10/17/20 07:25 Creatinine 1.60 mg/dl (0.52-1.04) H 10/17/20 07:25 Estimated Creat Clear 46 mL/min (50-200) 10/17/20 07:25 Was VTE Risk Assessment Performed: Yes VTE Score: 3 VTE Risk Level: Low Risk - Prophylaxis VTE Prophylaxis Ordered?: Yes Types of VTE Prophylaxis: TEDS Knee High Location of Applied Device: Bilateral Lower Extremeties
--- NOTE | 2020-10-17 14:33 | HMH.PHAINT ---
MEDICATION RECONCILIATION COMPLETED ON PATIENT USING EXTERNAL FILL HISTORY FROM PHARMACY. -MARYANN RICHARD, DOVD
[2020-10-17 16:50] LABS: Anion Gap 7.8 mEq/L (5-15); Blood Urea Nitrogen 6 mg/dl (7-17); Calcium 8.7 mg/dl (8.4-10.2); Carbon Dioxide 14 mmol/L (22.0-30.0); Chloride 125 mmol/L (98-107); Creatinine Clearance Estimated 57 mL/min (50-200); Estimated Glomerular Filt Rate 43 ml/min (>60); GFR (African American) 52 ML/MIN (>60); Glucose 92 mg/dl (74-100); Sodium 145 mmol/L (136-145)
[2020-10-17 16:59] LABS: Potassium 1.8 mmoL/L (3.5-5.1)
--- NOTE | 2020-10-17 17:03 | PC.NURSE ---
Pt has been pleasant and cooperative this shift. A&O X4. No complaints of pain. Pt is on room air with sats. >90%. Lungs CTA. No edema noted. Skin is C/D/I. Abdomen is soft and non-tender. Pt is extremely weak and is unable to ambulate at this time. Pt uses the bedpan to void clear, yellow urine without issue. No BM. Appetite is good and pt eats the majority of all meals. 20 G peripheral IV in the RT wrist is patent and SL. 20 G peripheral IV in the LT wrist is patent and infusing NS @ 100 ML/HR. VSS. Call light within reach. Will continue to monitor.
--- NOTE | 2020-10-17 20:50 | HMH.HP ---
*Admission Date: 10/17/20 *Chief complaint: weakness *History of present illness: this wf presented to the ed with weakness and tingling and dec ambulation - pt had been in the ed 1 day prior for same and noted to have hypokalemia but declined admit - presents this am with same issues - no known prev episodes and no hx of vomiting or diarrhea and no otc meds or herbs - [facility] History I have reviewed the patient's past medical history: Yes Medical History: Reports:: Anxiety, Chronic Obstructive Pulmonary Disease (COPD), Coronary Artery Disease, Deep Vein Thrombosis, Hyperlipidemia, Hypertension, Peripheral Artery Disease, Renal Disease Denies:: Cancer, Diabetes Mellitus Type 1, Diabetes Mellitus Type 2, Internal Pacemaker, MRSA, Seizures *Have you ever received a pneumonia vaccine?: No *Have you received a flu vaccine this season?: No Other Medical History: Reports: Hypothyroidism, Other Laterality Cases: Right: Carpal Tunnel Release Other Surgeries: Yes: Angiogram, Cardiac Catheterization, Colonoscopy, Coronary Stent, Tubal Ligation, Ureter Stent, Other (Renal stent). No: Pacemaker Amputation: No Fractures: No - *Social History Last grade of school completed: 11th or 12th Smoking Status: Current every day smoker Tobacco Type: cigarettes # Packs/Day (cigarettes): 1 Alcohol Intake: never Alcohol Intake Frequency:: other Substance Use Type: denies use *Occupational Status:: unemployed Housing: house Household Members: spouse *Travel in the last 8 weeks: None - Psychiatric History Pschychiatric History:: Reports:: Anxiety Family Hx:: Cancer, Diabetes, Hyperlipidemia, Hypertension Review of Systems - Review of Systems Review of systems:: pertinent systems reviewed and negative unless documented below - Constitutional Denies fever(s) - Eyes Denies change in vision - ENT Denies facial pain - *Cardiovascular Denies chest pain - *Respiratory Denies cough - *Gastrointestinal Denies abdominal pain - *Genitourinary Denies blood in urine - *Musculoskeletal Denies joint pain - Integumentary/Breasts Denies rash - *Neurologic Reports tingling/numbness/burning sensations, Reports weakness, Denies localized weakness - Psychiatric Denies confusion Meds Home Medications Medication Instructions Recorded Confirmed Type atorvastatin 20 mg tablet 20 mg PO HS 07/25/20 10/17/20 History clonazepam 0.5 mg tablet 0.5 mg PO TID #90 tab 07/25/20 10/17/20 Rx urea 40 % topical cream 1 applic TOPICAL BID 90 Days #85 g 08/10/20 10/17/20 Rx Aspirin [Low Dose Aspirin EC] 81 mg PO DAILY 10/17/20 10/17/20 History Cholecalciferol (Vitamin D3) 1,250 mcg PO WEEKLY 10/17/20 10/17/20 History [Vitamin D3 50,000 unit Cap] Gabapentin 600 mg PO TID 10/17/20 10/17/20 History Hydrocodone/Acetaminophen 1 each PO Q6HP PRN 10/17/20 10/17/20 History [Hydrocodon-Acetaminoph 7.5-325] Levothyroxine Sodium [Synthroid 50 mcg PO DAILY 10/17/20 10/17/20 History 50mcg (0.05mg) tab] Potassium Chloride [Klor-con 20 40 meq PO DAILY 10/17/20 10/17/20 History mEq tablet] Rivaroxaban [Xarelto 2.5mg Tab*] 2.5 mg PO BIDWM 10/17/20 10/17/20 History cilostazoL [Pletal 100mg tablet] 100 mg PO BID 10/17/20 10/17/20 History Allergies Allergy/AdvReac Type Severity Reaction Status Date / Time meloxicam [From [facility]] Allergy Unknown Verified 10/17/20 11:22 Penicillins [PENICILLINS] Allergy Unknown Verified 10/17/20 11:22 ibuprofen [IBUPROFEN] AdvReac Unknown NAUSEA Verified 10/17/20 11:22 Exam Vital signs and Labs for Last 24 Hours: Temp Pulse Resp BP Pulse Ox 98.2 F 67 17 135/81 100 10/17/20 15:38 10/17/20 15:38 10/17/20 15:38 10/17/20 15:38 10/17/20 15:38 Laboratory Results - last 24 hr 10/17/20 07:25: WBC 8.2, RBC 4.71, Hgb 13.5, Hct 40.5, MCV 85.9, MCH 28.7, MCHC 33.4, RDW 16.0, Plt Count 328, MPV 8.0, Neut % (Auto) 79.7, Lymph % (Auto) 14.5, [place] % (Auto) 3.5, Eos % (Auto) 1.8, Baso % (Auto) 0.5, Neut #
[2020-10-17 21:41] LABS: Troponin I 0.06 ng/ml (0.00-0.034)
[2020-10-18] VITALS (7 sets, daily range): BP systolic 127–144; BP diastolic 72–87; PULSE 64–80; RESP 16–22; TEMP 36.7–37.2; O2SAT 97–100; BMI 25.4
[2020-10-18 01:30] LABS: Anion Gap 5.9 mEq/L (5-15); Blood Urea Nitrogen 6 mg/dl (7-17); Calcium 8.2 mg/dl (8.4-10.2); Carbon Dioxide 17 mmol/L (22.0-30.0); Chloride 124 mmol/L (98-107); Creatinine Clearance Estimated 57 mL/min (50-200); Estimated Glomerular Filt Rate 43 ml/min (>60); GFR (African American) 52 ML/MIN (>60); Glucose 81 mg/dl (74-100); Sodium 145 mmol/L (136-145)
[2020-10-18 01:33] LABS: Potassium 1.9 mmoL/L (3.5-5.1)
--- NOTE | 2020-10-18 04:14 | PC.NURSE ---
pt is alert and oriented. uses bed alejandro at this time related to weakness. pt has stated that the weakness is improving and pt has been able to reposition self more in bed and assist with some care. iv patent and infusing per orders. pt had one episode of nausea and prn med given with relief. vss. call light in reach. will continue to monitor pt condition.
[2020-10-18 07:23] LABS: Basophils % 0.4 % (0.1-2.0); Eosinophils # 0.2 K/mm3 (0.0-0.4); Lymphocytes # 1.3 K/mm3 (0.7-4.5)
[2020-10-18 07:35] LABS: Anion Gap 5.1 mEq/L (5-15); Blood Urea Nitrogen 5 mg/dl (7-17); Calcium 8.1 mg/dl (8.4-10.2); Carbon Dioxide 18 mmol/L (22.0-30.0); Chloride 123 mmol/L (98-107); Creatinine Clearance Estimated 58 mL/min (50-200); Estimated Glomerular Filt Rate 43 ml/min (>60); GFR (African American) 52 ML/MIN (>60); Glucose 73 mg/dl (74-100); Sodium 144 mmol/L (136-145)
[2020-10-18 07:39] LABS: Eosinophils % 2.5 % (0.1-12.0); Hematocrit 35.4 % (37.0-47.0); Lymphocytes % 16.2 % (10-50); Mean Corpuscular HGB Conc 33.6 g/dL (31.8-35.4); Mean Corpuscular Hemoglobin 28.7 pg (27.0-31.2); Mean Corpuscular Volume 85.3 fl (81-99); Monocytes # 0.5 K/mm3 (0.1-1.0); Monocytes % 6.6 % (1.7-9.3); Neutrophils # 6.2 K/mm3 (1.8-7.8); Neutrophils % 74.4 % (37.0-80.0); Platelet Count 287 K/mm3 (142-424); Red Blood Count 4.15 M/mm3 (4.20-5.40); Red Cell Distribution Width 16.3 % (11.5-17.5); White Blood Count 8.3 K/mm3 (4.8-10.8)
[2020-10-18 08:11] LABS: Potassium 2.1 mmoL/L (3.5-5.1)
--- NOTE | 2020-10-18 09:07 | HMH.ACPN2 ---
<DarwinTyrone - Last Filed: 10/18/20 10:11> Internal Medicine - PN: Subj *Date: 10/18/20 *Time: 10:11 Exam Vital signs and Labs for Last 24 Hours: Temp Pulse Resp BP Pulse Ox 98.3 F 78 22 127/72 100 10/18/20 07:56 10/18/20 07:56 10/18/20 07:56 10/18/20 07:56 10/18/20 07:56 Laboratory Results - last 24 hr 10/17/20 08:04: Chlamy pneumoniae PCR Not detected, Adenovirus (PCR) Not detected, B. pertussis DNA (PCR) Not detected, Coronavirus OC43 (PCR) Not detected, Coronavirus HKU1 (PCR) Not detected, Coronavirus 229E (PCR) Not detected, SARS-CoV-2 (PCR) Not detected, Coronavirus NL63 (PCR) Not detected, Human Metapneumovir PCR Not detected, Influenza A (H1) PCR Not detected, Influ A (H1N1/09) PCR Not detected, Influenza A (H3) PCR Not detected, Influenza Type A (PCR) Not detected, Influenza Type B (PCR) Not detected, M. pneumoniae (PCR) Not detected, Parainfluenza 1 (PCR) Not detected, Parainfluenza 2 (PCR) Not detected, Parainfluenza 3 (PCR) Not detected, Parainfluenza 4 (PCR) Not detected, RSV (PCR) Not detected, Entero/Rhino (PCR) Not detected 10/17/20 10:50: Troponin I 0.06 H 10/17/20 13:49: Troponin I 0.06 H 10/17/20 16:30: Sodium 145, Potassium 1.8 L*, Chloride 125 H, Carbon Dioxide 14 L D, Anion Gap 7.8, BUN 6 L, Creatinine 1.30 H, Estimated Creat Clear 57, Estimated GFR 43 L, Est GFR ( Amer) 52 L D, Glucose 92, Calcium 8.7 10/18/20 01:12: Sodium 145, Potassium 1.9 L*, Chloride 124 H, Carbon Dioxide 17 L D, Anion Gap 5.9, BUN 6 L, Creatinine 1.30 H, Estimated Creat Clear 57, Estimated GFR 43 L, Est GFR ( Amer) 52 L, Glucose 81, Calcium 8.2 L 10/18/20 06:39: WBC 8.3, RBC 4.15 L, Hct 35.4 L, MCV 85.3, MCH 28.7, MCHC 33.6, RDW 16.3, Plt Count 287, MPV 8.0, Neut % (Auto) 74.4, Lymph % (Auto) 16.2, [place] % (Auto) 6.6, Eos % (Auto) 2.5, Baso % (Auto) 0.4, Neut # (Auto) 6.2, Lymph # (Auto) 1.3, [place] # (Auto) 0.5, Eos # (Auto) 0.2, Baso # (Auto) 0.0 10/18/20 06:39: Sodium 144, Potassium 2.1 L*, Chloride 123 H, Carbon Dioxide 18 L, Anion Gap 5.1, BUN 5 L, Creatinine 1.30 H, Estimated Creat Clear 58, Estimated GFR 43 L, Est GFR ( Amer) 52 L, Glucose 73 L, Calcium 8.1 L I & O for Last 24 hours: Intake & Output 10/15/20 10/16/20 10/17/20 10/18/20 23:59 23:59 23:59 23:59 Intake Total 1906 / 1906 2089 Output Total 1000 / 1000 Balance 906 / 906 2089 Weight 154 lb 6 oz 158 lb 6 oz - Constitutional no acute distress - *Routine HEENT Exam Head: Present: normocephalic Eye: Present: EOMI ENT: Present: mucous membranes moist - *Routine Neck Exam Present: trachea midline. Absent: tracheal deviation - *Routine Respiratory Exam Present: CTA bilaterally. Absent: accessory muscle use - *Routine Cardiovascular Exam Present: RRR - *Routine Abdominal Exam Present: soft, normoactive bowel sounds. Absent: tenderness, firm - *Routine Extremities Exam Present: full ROM, pulses intact. Absent: cyanosis, edema, calf tenderness - *Routine Skin Exam Present: intact, dry, warm. Absent: cyanosis, erythema - *Routine Neurological Exam Present: alert, oriented X3. Absent: motor deficit, pronator drift - Routine Psychiatric Exam Present: normal affect, normal thought process. Absent: auditory hallucinations, visual hallucinations Assessment and Plan (1) Hypokalemia Status: Acute Category: Medical Code(s): E87.6 - Hypokalemia (2) Neuropathy Status: Chronic Category: Medical Code(s): G62.9 - Polyneuropathy, unspecified (3) Hypertension Status: Chronic Qualifiers: Hypertension type: essential hypertension Qualified Code(s): I10 - Essential (primary) hypertension Category: Medical Code(s): I10 - Essential (primary) hypertension (4) Hypothyroidism Status: Chronic Qualifiers: Hypothyroidism type: acquired Qualified Code(s): E03.9 - Hypothyroidism, unspecified Category: Medical Code(s): E03.9 - Hypothyroidism, unspecified <F[place]
[2020-10-18 09:45] LABS: Hemoglobin 11.9 g/dL (12.2-16.2)
[2020-10-18 13:34] LABS: Prolactin 5.8 ng/mL (4.8-23.3)
[2020-10-18 14:22] LABS: Anion Gap 4.7 mEq/L (5-15); Blood Urea Nitrogen 5 mg/dl (7-17); Calcium 8.5 mg/dl (8.4-10.2); Carbon Dioxide 18 mmol/L (22.0-30.0); Chloride 121 mmol/L (98-107); Creatinine Clearance Estimated 58 mL/min (50-200); Estimated Glomerular Filt Rate 43 ml/min (>60); GFR (African American) 52 ML/MIN (>60); Glucose 108 mg/dl (74-100); Sodium 141 mmol/L (136-145)
[2020-10-18 14:24] LABS: Potassium 2.7 mmoL/L (3.5-5.1)
--- NOTE | 2020-10-18 18:24 | PC.NURSE ---
Pt has ambulated in the patel multiple times this shift. Pt remains in NSR on tele. Continues to tolerate RA. No other acute changes or complaints at this time. Will continue to monitor.
[2020-10-19] VITALS (7 sets, daily range): BP systolic 114–161; BP diastolic 55–94; PULSE 50–83; RESP 16–19; TEMP 36.5–36.8; O2SAT 96–99; BMI 25.9
[2020-10-19 06:38] LABS: Basophils % 0.6 % (0.1-2.0); Eosinophils # 0.2 K/mm3 (0.0-0.4); Eosinophils % 3.4 % (0.1-12.0); Hemoglobin 11.1 g/dL (12.2-16.2); Lymphocytes # 1.2 K/mm3 (0.7-4.5); Mean Corpuscular HGB Conc 34.6 g/dL (31.8-35.4); Mean Corpuscular Hemoglobin 29.4 pg (27.0-31.2); Mean Platelet Volume 8.4 fl (7.4-10.4); Monocytes # 0.2 K/mm3 (0.1-1.0); Monocytes % 4.3 % (1.7-9.3); Neutrophils # 3.6 K/mm3 (1.8-7.8); Neutrophils % 68.7 % (37.0-80.0); Platelet Count 242 K/mm3 (142-424); Red Blood Count 3.76 M/mm3 (4.20-5.40); Red Cell Distribution Width 16.5 % (11.5-17.5); White Blood Count 5.2 K/mm3 (4.8-10.8)
[2020-10-19 06:44] LABS: Chloride 120 mmol/L (98-107)
[2020-10-19 06:45] LABS: Sodium 143 mmol/L (136-145)
[2020-10-19 06:47] LABS: Blood Urea Nitrogen 4 mg/dl (7-17)
[2020-10-19 06:48] LABS: Anion Gap 7.7 mEq/L (5-15); Calcium 8.3 mg/dl (8.4-10.2); Carbon Dioxide 18 mmol/L (22.0-30.0); Creatinine Clearance Estimated 59 mL/min (50-200); Estimated Glomerular Filt Rate 43 ml/min (>60); GFR (African American) 52 ML/MIN (>60); Glucose 88 mg/dl (74-100)
[2020-10-19 07:20] LABS: Potassium 2.7 mmoL/L (3.5-5.1)
--- NOTE | 2020-10-19 09:46 | P.PN_ITS ---
Internal Medicine - PN: Subj *Date: 10/19/20 *Time: 08:30 Interval history: pt sitting up in chair states no issues at this time Exam Vital signs and Labs for Last 24 Hours: Temp Pulse Resp BP Pulse Ox 97.7 F 61 18 141/55 H 97 10/19/20 07:47 10/19/20 07:47 10/19/20 07:47 10/19/20 07:47 10/19/20 07:47 Laboratory Results - last 24 hr 10/17/20 10:50: Prolactin 5.8 10/18/20 13:55: Sodium 141, Potassium 2.7 L* D, Chloride 121 H, Carbon Dioxide 18 L, Anion Gap 4.7 L, BUN 5 L, Creatinine 1.30 H, Estimated Creat Clear 58, Estimated GFR 43 L, Est GFR ( Amer) 52 L, Glucose 108 H D, Calcium 8.5 10/19/20 06:21: WBC 5.2 D, RBC 3.76 L, Hgb 11.1 L, Hct 32.0 L, MCV 85.0, MCH 29.4, MCHC 34.6, RDW 16.5, Plt Count 242, MPV 8.4, Neut % (Auto) 68.7, Lymph % (Auto) 23.0, [place] % (Auto) 4.3, Eos % (Auto) 3.4, Baso % (Auto) 0.6, Neut # (Auto) 3.6, Lymph # (Auto) 1.2, [place] # (Auto) 0.2, Eos # (Auto) 0.2, Baso # (Auto) 0.0 10/19/20 06:21: Sodium 143, Potassium 2.7 L*, Chloride 120 H, Carbon Dioxide 18 L, Anion Gap 7.7, BUN 4 L, Creatinine 1.30 H, Estimated Creat Clear 59, Estimated GFR 43 L, Est GFR ( Amer) 52 L, Glucose 88, Calcium 8.3 L 10/19/20 06:21: Magnesium 2.0 I & O for Last 24 hours: Intake & Output 10/16/20 10/17/20 10/18/20 10/19/20 11:59 11:59 11:59 11:59 Intake Total 3996 / 3996 600 / 600 Output Total 1000 / 1000 Balance 2996 / 2996 600 / 600 Weight 154 lb 6 oz 158 lb 6 oz 161 lb 2 oz - Constitutional no acute distress - *Routine HEENT Exam Head: Present: normocephalic Eye: Present: PERRL ENT: Present: mucous membranes moist - *Routine Neck Exam Present: supple. Absent: lymphadenopathy - *Routine Respiratory Exam Present: CTA bilaterally - *Routine Cardiovascular Exam Present: RRR - *Routine Abdominal Exam Present: soft, normoactive bowel sounds. Absent: tenderness - *Routine Extremities Exam Absent: cyanosis, clubbing, edema - *Routine Skin Exam Present: warm. Absent: rash - *Routine Neurological Exam Present: alert, oriented X3 - Routine Psychiatric Exam Present: normal affect Assessment and Plan (1) Hypokalemia Status: Acute Category: Medical Code(s): E87.6 - Hypokalemia (2) Neuropathy Status: Chronic Category: Medical Code(s): G62.9 - Polyneuropathy, unspecified (3) Hypertension Status: Chronic Qualifiers: Hypertension type: essential hypertension Qualified Code(s): I10 - Essential (primary) hypertension Category: Medical Code(s): I10 - Essential (primary) hypertension (4) Hypothyroidism Status: Chronic Qualifiers: Hypothyroidism type: acquired Qualified Code(s): E03.9 - Hypothyroidism, unspecified Category: Medical Code(s): E03.9 - Hypothyroidism, unspecified - Assessment and plan all Dx Assessment and Plan for all problems:: rounded with dr coto all orders per dr coto kcl supp 24 hr urine
[2020-10-19 18:34] LABS: Chloride 119 mmol/L (98-107); Potassium 3.8 mmoL/L (3.5-5.1); Sodium 143 mmol/L (136-145)
[2020-10-19 18:37] LABS: Blood Urea Nitrogen 4 mg/dl (7-17); Creatinine Clearance Estimated 55 mL/min (50-200); Estimated Glomerular Filt Rate 40 ml/min (>60); GFR (African American) 48 ML/MIN (>60)
[2020-10-19 18:38] LABS: Anion Gap 8.8 mEq/L (5-15); Calcium 8.7 mg/dl (8.4-10.2); Carbon Dioxide 19 mmol/L (22.0-30.0); Glucose 116 mg/dl (74-100)
[2020-10-20 03:53] VITALS: BP 145/85; PULSE 63; RESP 17; TEMP 36.5; O2SAT 98
[2020-10-20 05:00] VITALS: BMI 58.2
--- NOTE | 2020-10-20 06:04 | PC.NURSE ---
Addendum entered by Syeda Renee RN 10/20/20 07:20: Dr. Quinonez gave ok to take monitor tech off of patient Original Note: pt is AxOx4, has ambulated several times in hallway, did complain of some left leg pain and was treated per JUL, has remained on room air, voiding without difficulty
[2020-10-20 07:38] VITALS: BMI 26.4
[2020-10-20 07:57] VITALS: PULSE 78; RESP 17; O2SAT 100
[2020-10-20 08:00] VITALS: BP 155/90; PULSE 78; RESP 17; TEMP 36.6; O2SAT 100
--- NOTE | 2020-10-20 08:42 | HMH.DCSUM ---
General - General Admission date:: 10/17/20 Discharge date: 10/20/20 HPI HPI: this wf presented to the ed with weakness and tingling and dec ambulation - pt had been in the ed 1 day prior for same and noted to have hypokalemia but declined admit - presents this am with same issues - no known prev episodes and no hx of vomiting or diarrhea and no otc meds or herbs - Hospital Course Hospital Course: this wf presented to the ed with weakness and tingling and dec ambulation - pt had been in the ed 1 day prior for same and noted to have hypokalemia but declined admit - presents this am with same issues - no known prev episodes and no hx of vomiting or diarrhea and no otc meds or herbs - 10/17/[address]: FINDINGS: No midline shift, mass effect, intracranial hemorrhage, hydrocephalus, or extra-axial fluid collection is evident. The calvarium has an unremarkable appearance. No mastoid effusion. There is minimal mucosal thickening of the ethmoid sinuses. No sinus air-fluid levels evident. IMPRESSION: No acute intracranial finding Dictated by: Fred Barakat 10/17/20 Abd/Pelvis CT: FINDINGS: LOWER THORAX: Atelectatic changes are present in the lung bases posteriorly. There is a small pneumatocele in the right lower lobe laterally at 1 cm with some scarring in the right lung base adjacent to the pneumatocele. Calcified granulomas present in the left lower lobe. ABDOMEN & PELVIS: The liver, gallbladder, spleen and pancreas have an unremarkable appearance. There is a 2 cm left adrenal nodule with density measurements consistent with an adenoma. This is not significantly changed. There is mild prominence of the renal collecting system on both sides. No renal or ureteral calculi are evident. No bladder stones apparent. There is a small cystocele along the right lateral aspect of the urinary bladder at approximately 13 mm. No intestinal obstruction or free air. Hyperdense material is present within the fundus of the stomach and could represent recent bismuth containing medication ingestion. Unremarkable appearing appendix. No evidence of diverticulitis. There are small segmental areas of thickened appearance of the colon but may be due to nondistention. Nonemergent colonoscopy or barium enema may confirm. There are nondistended gas-filled loops of small and bowel with a few air-fluid levels which could be seen with enteritis. Bilateral tubal ligation clips are present. No pelvic mass or abnormal fluid collection. There is a left femoral artery stent in place. No acute bony anomalies. IMPRESSION: 1. Possible enteritis. 2. Other nonemergent findings as described above. Please see above for detail Dictated by: Fred Barakat Lab work today no leukocytosis, H/H stable Sodium 143, potassium stable 4.0, GFR 43 Patient sitting up in chair at side of bed with in room. She reports she is feeling great, denies shortness of breath, chest pain, or any concerns/needs. Discussed discharge home she is in agreement with this. Instructed on importance of follow-up appointments. During her stay she has received multiple rounds of IV potassium and IV magnesium her potassium has steadily risen from 1.9 to today of 4.0 she has had stable potassium for 2 days, discussed case with nephrology and she will follow up. PLAN: 1. Wiil D/C home today 2. Potassium 20meq twice daily 3. F/u PCP 1 week 4. F/U Nephrology Objective Vital signs: Temp Pulse Resp BP Pulse Ox 97.7 F 63 17 145/85 H 98 10/20/20 03:53 10/20/20 03:53 10/20/20 03:53 10/20/20 03:53 10/20/20 03:53 no acute distress - *Routine HEENT Exam Head: Present: normocephalic Eye: Present: EOMI ENT: Present: mucous membranes moist - *Routine Neck Exam Present: trachea midline. Absent: tracheal deviation - *Routine Respiratory Exam Present: CTA bilaterally. Absent: accessory
[2020-10-20 09:34] LABS: Basophils # 0.1 K/mm3 (0-0.2); Basophils % 0.9 % (0.1-2.0); Eosinophils # 0.2 K/mm3 (0.0-0.4); Eosinophils % 3.1 % (0.1-12.0); Hematocrit 35.7 % (37.0-47.0); Hemoglobin 11.8 g/dL (12.2-16.2); Lymphocytes # 1.1 K/mm3 (0.7-4.5); Lymphocytes % 21.9 % (10-50); Mean Corpuscular Hemoglobin 28.8 pg (27.0-31.2); Mean Corpuscular Volume 87.4 fl (81-99); Mean Platelet Volume 8.7 fl (7.4-10.4); Monocytes # 0.3 K/mm3 (0.1-1.0); Monocytes % 5.9 % (1.7-9.3); Neutrophils # 3.5 K/mm3 (1.8-7.8); Neutrophils % 68.3 % (37.0-80.0); Platelet Count 276 K/mm3 (142-424); Red Blood Count 4.08 M/mm3 (4.20-5.40); Red Cell Distribution Width 16.4 % (11.5-17.5); White Blood Count 5.1 K/mm3 (4.8-10.8)
[2020-10-20 10:19] LABS: Chloride 121 mmol/L (98-107); Sodium 143 mmol/L (136-145)
[2020-10-20 10:22] LABS: Blood Urea Nitrogen 3 mg/dl (7-17); Creatinine Clearance Estimated 60 mL/min (50-200); Estimated Glomerular Filt Rate 43 ml/min (>60); GFR (African American) 52 ML/MIN (>60)
[2020-10-20 10:23] LABS: Calcium 8.8 mg/dl (8.4-10.2); Carbon Dioxide 17 mmol/L (22.0-30.0); Glucose 107 mg/dl (74-100)
[2020-10-20 13:10] LABS: Collection Time,Urine 24 hours; Total Volume,Urine 1850 mL (600-1600)
[2020-10-20 13:20] LABS: Creatinine 24 Hour,Urine 796 mg/24hr (630-2500)
[2020-10-20 13:33] LABS: Creatinine,Urine Random 43 mg/dL (Not Estab.)
[2020-10-20 17:32] LABS: Renin Activity, Plasma 0.292 ng/mL/hr (0.167-5.380)
[2020-10-21 09:43] LABS: Calcium, Urine 15.1 mg/dL (Not Estab.); Calcium, Urine 24hr 279 mg/24 hr (47-462)
[2020-11-05 10:56] LABS: Potassium, Urine 5.2; Potassium, Urine 24 Hr 10
== END 2020-10-20 10:30 | disposition home or self-care (01) | DRG 641 ==
LOC: ER 07:52 → 2ND 08:27
PROVIDERS: Emergency Medicine; Family Medicine; Nurse Practitioner Family; Admitting Provider Emergency Medicine; Emergency Provider Emergency Medicine; PCP Emergency Medicine; Visit Provider Emergency Medicine
DX: E87.6 Hypokalemia (principal); I10 Essential (primary) hypertension; I25.10 Atherosclerotic heart disease of native coronary artery without angina pectoris; E78.5 Hyperlipidemia, unspecified; Z95.5 Presence of coronary angioplasty implant and graft; E03.9 Hypothyroidism, unspecified; F17.210 Nicotine dependence, cigarettes, uncomplicated; G62.9 Polyneuropathy, unspecified; Z88.0 Allergy status to penicillin; Z88.8 Allergy status to other drugs, medicaments and biological substances; Z79.899 Other long term (current) drug therapy
CPT/HCPCS: 36415; 70450; 72040; 74176; 80048; 80053; 81001; 82088; 82340; 82550; 82570; 83735; 83930; 84100; 84133; 84146; 84244; 84436; 84443; 84484; 84588; 85025; 87581; 87633; 87798; 93005; 96365; 96366; 96367; 99283; 99284; J2405; U0003

== ENCOUNTER → 2020-10-24 18:18 | Outpatient (CLI) | payer MEDICAID, SELFPAY ==
[2020-10-24 18:40] LABS: Anion Gap 12.3 mEq/L (5-15); Blood Urea Nitrogen 9 mg/dl (7-17); Calcium 9.3 mg/dl (8.4-10.2); Carbon Dioxide 18 mmol/L (22.0-30.0); Chloride 116 mmol/L (98-107); Estimated Glomerular Filt Rate 40 ml/min (>60); GFR (African American) 48 ML/MIN (>60); Glucose 82 mg/dl (74-100); Potassium 4.3 mmoL/L (3.5-5.1); Sodium 142 mmol/L (136-145)
== END ==
PROVIDERS: Visit Provider Emergency Medicine
DX: E87.6 Hypokalemia (principal)
CPT/HCPCS: 80048

== ENCOUNTER → 2021-01-02 14:03 | Outpatient (CLI) | payer MEDICAID, SELFPAY ==
--- NOTE | 2021-01-02 14:06 | XR_ITS ---
PROCEDURE: XR WRIST RT MIN 3V CLINICAL INDICATION: cyst COMPARISON: No exams were available for comparison FINDINGS: No fracture or dislocation. No lytic or blastic change. There is normal mineralization. The joint spaces are well-preserved. No significant degenerative/arthritic changes. No erosive changes evident. No bony erosive changes IMPRESSION: Negative right wrist Dictated by: Fred Barakat MD 01/02/2021 15:40 Fred Barakat MD in [place] 01/02/2021 15:40
== END ==
PROVIDERS: PCP Emergency Medicine; Visit Provider Orthopaedic Surgery
DX: M25.539 Pain in unspecified wrist (principal)
CPT/HCPCS: 73110

== ENCOUNTER 2021-01-02 14:36 | Outpatient (RCR) | payer MEDICAID, SELFPAY | END 2021-01-02 15:27 | disposition home or self-care (01) | LOC: OT 14:36 | PROVIDERS: Visit Provider Orthopaedic Surgery | DX: M25.531 Pain in right wrist (principal); G89.29 Other chronic pain; M67.431 Ganglion, right wrist; G56.01 Carpal tunnel syndrome, right upper limb | CPT/HCPCS: 97760 ==

== ENCOUNTER → 2022-01-14 12:08 | Outpatient (CLI) | payer MEDICAID, SELFPAY ==
[2022-01-14 13:19] LABS: Basophils # 0.1 K/mm3 (0-0.2); Basophils % 1.7 % (0.1-2.0); Eosinophils # 0.2 K/mm3 (0.0-0.4); Hematocrit 43.6 % (37.0-47.0); Hemoglobin 13.1 g/dL (12.2-16.2); Lymphocytes # 1.2 K/mm3 (0.7-4.5); Lymphocytes % 20.1 % (10-50); Mean Corpuscular HGB Conc 30.1 g/dL (31.8-35.4); Mean Corpuscular Hemoglobin 28.3 pg (27.0-31.2); Mean Corpuscular Volume 94.2 fl (81-99); Mean Platelet Volume 8.7 fl (7.4-10.4); Monocytes # 0.5 K/mm3 (0.1-1.0); Monocytes % 7.7 % (1.7-9.3); Neutrophils % 66.5 % (37.0-80.0); Platelet Count 318 K/mm3 (142-424); Red Blood Count 4.63 M/mm3 (4.20-5.40); Red Cell Distribution Width 14.9 % (11.5-17.5); White Blood Count 6.1 K/mm3 (4.8-10.8)
[2022-01-14 14:09] LABS: Chloride 113 mmol/L (98-107); Potassium 3.9 mmoL/L (3.5-5.1); Sodium 143 mmol/L (136-145)
[2022-01-14 14:12] LABS: Albumin Level 4.2 g/dl (3.5-5.0); Anion Gap 13.9 mEq/L (5-15); Calcium 10.1 mg/dl (8.4-10.2); Carbon Dioxide 20 mmol/L (22.0-30.0); Chol/HDL Ratio 3.1 (1-3.5); Cholesterol 199 mg/dl (140-200); Glucose 79 mg/dl (74-100); HDL Cholesterol 64 mg/dl (40-60); Magnesium 1.7 mg/dl (1.6-2.3); Total Protein,Serum 7.2 g/dl (6.3-8.2); Triglycerides 85 mg/dl (30-150); VLDL Cholesterol 17 mg/dL (0-40)
[2022-01-14 14:41] LABS: Free T4 (Free Thyroxine) 0.77 ng/dl (0.78-2.19)
[2022-01-14 16:57] LABS: Alanine Aminotransferase 18 U/L (12-78); Alkaline Phosphatase 115 U/L (38-126); Aspartate Amino Transferase 23 U/L (14-36); Bilirubin,Direct 0.2 mg/dl (0.0-0.4); Bilirubin,Total 0.2 mg/dl (0.2-1.3); Blood Urea Nitrogen 17 mg/dl (7-17); Estimated Glomerular Filt Rate 34 ml/min (>60); GFR (African American) 41 ML/MIN (>60)
[2022-01-16 09:38] LABS: Direct LDL Cholesterol 107 mg/dL (100-129)
== END ==
PROVIDERS: PCP Emergency Medicine; Visit Provider Internal Medicine
DX: R06.00 Dyspnea, unspecified (principal); R07.9 Chest pain, unspecified; E78.5 Hyperlipidemia, unspecified; I73.9 Peripheral vascular disease, unspecified; Z79.899 Other long term (current) drug therapy
CPT/HCPCS: 36415; 80048; 80061; 80076; 83735; 84439; 84443; 85025

== ENCOUNTER → 2022-04-05 17:26 | Outpatient (CLI) | payer MEDICAID, SELFPAY ==
[2022-04-05 16:24] LABS: Amphetamine/Metha Screen,Urine Negative ng/ml (<1000)
[2022-04-05 16:25] LABS: Barbiturates Screen,Urine Negative ng/ml (<200); Benzodiazepines Screen,Urine Negative ng/ml (<200)
[2022-04-05 16:26] LABS: Cannabinoid Screen,Urine Negative ng/ml (<50); Cocaine Screen,Urine Negative ng/ml (<300)
[2022-04-05 16:27] LABS: Methadone Screen,Urine Negative ng/ml (<300)
[2022-04-05 16:28] LABS: Opiate Screen,Urine Positive ng/ml (<300)
[2022-04-05 16:29] LABS: Phencyclidine Screen,Urine Negative ng/ml (<25)
== END ==
PROVIDERS: PCP Emergency Medicine; Visit Provider Emergency Medicine
DX: Z79.899 Other long term (current) drug therapy (principal)
CPT/HCPCS: 80305

== ENCOUNTER 2022-04-15 13:04 | Emergency (ER) | payer MEDICAID, SELFPAY ==
--- NOTE | 2022-04-15 15:11 | EXP.UTC ---
Discharge Plan Disposition Patient Disposition: Home, Self-Care Condition: Good Prescriptions Prescriptions: New benzonatate [benzonatate] 100 mg capsule 100 mg PO TIDP PRN (Reason: Cough) Qty: 30 0RF oseltamivir [Tamiflu] 75 mg capsule 75 mg PO BID Qty: 10 0RF methylprednisolone 4 mg Tablets,Dose Pack 4 mg PO DIRECTED Qty: 21 0RF No Action urea 40 % cream 1 applic TOPICAL BID 90 Days Qty: 85 3RF clonazepam 0.5 mg tablet 0.5 mg PO TID Qty: 90 2RF gabapentin 800 mg tablet 800 mg PO TID Qty: 90 2RF hydrocodone-acetaminophen 7.5-325 mg tablet 1 tab PO Q6H PRN aspirin 81 mg tablet,delayed release (DR/EC) See Rx Instructions .ROUTE .COMPLEX Qty: 90 3RF Dose Instruction: TAKE 1 TABLET BY MOUTH DAILY Rx Instructions: TAKE 1 TABLET BY MOUTH DAILY cilostazol 100 mg tablet See Rx Instructions .ROUTE .COMPLEX Qty: 180 3RF Dose Instruction: TAKE 1 TABLET BY MOUTH TWICE DAILY Rx Instructions: TAKE 1 TABLET BY MOUTH TWICE DAILY potassium chloride 20 mEq tablet,ER particles/crystals See Rx Instructions .ROUTE .COMPLEX Qty: 180 3RF Dose Instruction: TAKE 1 TABLET BY MOUTH TWICE DAILY Rx Instructions: TAKE 1 TABLET BY MOUTH TWICE DAILY Xarelto 2.5 mg tablet See Rx Instructions .ROUTE .COMPLEX Qty: 60 2RF Dose Instruction: TAKE 1 TABLET BY MOUTH TWICE DAILY Rx Instructions: TAKE 1 TABLET BY MOUTH TWICE DAILY levothyroxine [Synthroid] 50 mcg tablet 50 mcg PO DAILY Qty: 30 5RF atorvastatin 40 mg tablet 40 mg PO DAILY Qty: 90 3RF ergocalciferol (vitamin D2) 1,250 mcg (50,000 unit) capsule 1,250 mcg PO WEEKLY Qty: 14 3RF Referrals Follow up/Referrals: Saurabh Gonzalez MD [Primary Care Provider] - See instructions Activity Restrictions/Add. Instructions Additional Instructions/Restrictions: Drink plenty of fluids. Take tylenol or ibuprofen for pain or fever. Take the medications as directed. Follow up with your regular doctor. GO TO THE ER FOR ANY WORSENING SYMPTOMS Clinical Impressions Clinical Impression: Influenza A Instructions Patient Instructions: DI for Influenza -- Adult, Oseltamivir Discharge ED Provider: Noah Tomas [facility] General Stated complaint: cough,Congestion Time Seen by Provider: 04/15/22 15:11 History of Present Illness Provider Complaint: She states that for the past 2 days she has had fever, chills, body aches, sinus congestion and a cough. Related Data Home Medications Medication Instructions Recorded Confirmed hydrocodone 7.5 mg-acetaminophen 1 tab PO Q6H PRN 10/10/21 04/05/22 325 mg tablet Previous Rx's Medication Instructions Recorded urea 40 % topical cream 1 applic topical BID keratosis 90 08/10/20 days #85 grams aspirin 81 mg tablet,delayed See Rx Instructions .Route 12/07/21 release .COMPLEX #90 tabs cilostazol 100 mg tablet See Rx Instructions .Route 01/08/22 .COMPLEX #180 tabs potassium chloride 20 mEq See Rx Instructions .Route 01/08/22 tablet,extended release(part/cryst) .COMPLEX #180 tabs rivaroxaban 2.5 mg tablet (Xarelto) See Rx Instructions .Route 01/10/22 .COMPLEX #60 tabs levothyroxine 50 mcg tablet 50 mcg PO DAILY #30 tabs 01/15/22 (Synthroid) atorvastatin 40 mg tablet 40 mg PO DAILY #90 tabs 01/16/22 ergocalciferol (vitamin D2) 1,250 1,250 mcg PO WEEKLY #14 caps 02/15/22 mcg (50,000 unit) capsule clonazepam 0.5 mg tablet 0.5 mg PO TID Anxiety #90 tabs 04/05/22 gabapentin 800 mg tablet 800 mg PO TID #90 tabs 04/05/22 benzonatate 100 mg capsule 100 mg PO TIDP PRN Cough #30 caps 04/15/22 methylprednisolone 4 mg tablets in 4 mg PO DIRECTED #21 tabs 04/15/22 a dose pack oseltamivir 75 mg capsule (Tamiflu) 75 mg PO BID #10 caps 04/15/22 Allergies Allergy/AdvReac Type Severity Reaction Status Date / Time meloxicam [[facility] Allergy Unknown Verified 04/15/22 15:21 Penicillins [PENICILLINS] A
[2022-04-15 15:19] VITALS: BP 103/69; PULSE 94; RESP 18; TEMP 37.1; O2SAT 97; BMI 25.9
[2022-04-15 15:29] LABS: UTC Influenza A Antigen Positive (Negative); UTC Influenza B Antigen Negative (Negative)
[2022-04-15 15:46] VITALS: BP 103/69; PULSE 94; RESP 18; TEMP 37.1
== END 2022-04-15 15:47 | disposition home or self-care (01) ==
PROVIDERS: Emergency Provider Nurse Practitioner Family; PCP Emergency Medicine
DX: J10.1 Influenza due to other identified influenza virus with other respiratory manifestations (principal)
CPT/HCPCS: 87804; 99212; G0463

== ENCOUNTER 2022-07-10 16:36 | Emergency (ER) | payer MEDICAID, SELFPAY ==
[2022-07-10 16:40] VITALS: BP 134/80; PULSE 102; RESP 23; TEMP 36.7; O2SAT 96; BMI 28.1
--- NOTE | 2022-07-10 16:43 | XR_ITS ---
PROCEDURE INFORMATION: Exam: XR Left Hand Exam date and time: 07/10/2022 4:40 PM Age: 52 years old Clinical indication: Pain; Hand; Left TECHNIQUE: Imaging protocol: Radiologic exam of the left hand. Views: 3 or more views. COMPARISON: [facility] 12/11/2015 3:42 PM FINDINGS: Bones/joints: Normal. No fracture or malalignment. Joint surfaces preserved. Soft tissues: Normal. IMPRESSION: Normal left hand.
--- NOTE | 2022-07-10 17:02 | EXP.UTC ---
Discharge Plan Disposition Patient Disposition: Home, Self-Care Condition: Good Prescriptions Prescriptions: No Action urea 40 % cream 1 applic TOPICAL BID 90 Days Qty: 85 3RF clonazepam 0.5 mg tablet 0.5 mg PO TID Qty: 90 2RF gabapentin 800 mg tablet 800 mg PO TID Qty: 90 2RF hydrocodone-acetaminophen 7.5-325 mg tablet 1 tab PO Q6H PRN aspirin 81 mg tablet,delayed release (DR/EC) See Rx Instructions .ROUTE .COMPLEX Qty: 90 3RF Dose Instruction: TAKE 1 TABLET BY MOUTH DAILY Rx Instructions: TAKE 1 TABLET BY MOUTH DAILY cilostazol 100 mg tablet See Rx Instructions .ROUTE .COMPLEX Qty: 180 3RF Dose Instruction: TAKE 1 TABLET BY MOUTH TWICE DAILY Rx Instructions: TAKE 1 TABLET BY MOUTH TWICE DAILY potassium chloride 20 mEq tablet,ER particles/crystals See Rx Instructions .ROUTE .COMPLEX Qty: 180 3RF Dose Instruction: TAKE 1 TABLET BY MOUTH TWICE DAILY Rx Instructions: TAKE 1 TABLET BY MOUTH TWICE DAILY levothyroxine [Synthroid] 50 mcg tablet 50 mcg PO DAILY Qty: 30 5RF atorvastatin 40 mg tablet 40 mg PO DAILY Qty: 90 3RF ergocalciferol (vitamin D2) 1,250 mcg (50,000 unit) capsule 1,250 mcg PO WEEKLY Qty: 14 3RF Xarelto 2.5 mg tablet See Rx Instructions .ROUTE .COMPLEX Qty: 60 0RF Dose Instruction: TAKE 1 TABLET BY MOUTH TWICE DAILY Rx Instructions: TAKE 1 TABLET BY MOUTH TWICE DAILY Referrals Follow up/Referrals: Saurabh Gonzalez MD [Primary Care Provider] - See instructions Activity Restrictions/Add. Instructions Additional Instructions/Restrictions: *RICE, Rest the extremity, Ice 15-20 minutes 3-4 times daily, Compress- wear the george wrap as discussed as much as possible to help reduce swelling and pain, Elevate the extremity when at rest *George wrap is for support and help control swelling, use it except in the shower. Be sure that is not to tight but not to loose either *Elevate when resting? *Ibuprofen 600-800mg every 6-8 hours as needed for pain an inflammation. If need something more can take Tylenol in between doses of Ibuprofen to help Immediately follow up with your family doctor for new or worsening of symptoms, or no noticeable improvement over the next 3-5 days Clinical Impressions Clinical Impression: Thumb pain Qualifiers: Laterality: left Qualified Code(s): M79.645 - Pain in left finger(s) Instructions Patient Instructions: How To Perform RICE (Rest, Ice, Compress, Elevate) Discharge ED Provider: Tracy Cruz [facility] General Stated complaint: LT thumb pain Mode of Arrival: Ambulatory Source of Information: Patient Limitations: No Limitations Time Seen by Provider: 07/10/22 17:02 Description of Symptoms (Recalled from Triage Doc. by RN): PATIENT C/O LEFT THUMB PAIN X 1 MONTH HEENT Symptoms (Recalled from RN notes): No Resp Symptoms (Recalled from RN notes): No Skin Symptoms (Recalled from RN notes): No MS Symptoms (Recalled from RN notes): Yes Functional Status (Recalled from RN notes): WNL History of Present Illness Provider Complaint: Patient states that for the last month she has been having pain in the side of her left thumb and hurts at times when she moves it or bumps it against something States that it looked a little swollen earlier so she wanted to get it checked while she was here Related Data Home Medications Medication Instructions Recorded Confirmed hydrocodone 7.5 mg-acetaminophen 1 tab PO Q6H PRN 10/10/21 07/05/22 325 mg tablet Previous Rx's Medication Instructions Recorded urea 40 % topical cream 1 applic topical BID keratosis 90 08/10/20 days #85 grams aspirin 81 mg tablet,delayed See Rx Instructions .Route 12/07/21 release .COMPLEX #90 tabs cilostazol 100 mg tablet See Rx Instructions .Route 01/08/22 .COMPLEX #180 tabs potassium chloride 20 mEq See Rx Instructions .Route 01/08/22 tablet,extended release(part/cryst) .COMPLEX #180 tabs
[2022-07-10 17:35] VITALS: BP 134/80; PULSE 102; RESP 23; TEMP 36.7; O2SAT 96
== END 2022-07-10 17:39 | disposition home or self-care (01) ==
PROVIDERS: Emergency Provider Nurse Practitioner; PCP Emergency Medicine
DX: M79.645 Pain in left finger(s) (principal)
CPT/HCPCS: 73130; 99212; G0463

== ENCOUNTER → 2022-09-24 09:56 | Outpatient (CLI) | payer MEDICAID, SELFPAY ==
[2022-09-24 11:48] LABS: Basophils # 0.1 K/mm3 (0-0.2); Basophils % 0.8 % (0.1-2.0); Eosinophils # 0.2 K/mm3 (0.0-0.4); Eosinophils % 3.3 % (0.1-12.0); Hematocrit 44.9 % (37.0-47.0); Hemoglobin 14.7 g/dL (12.2-16.2); Lymphocytes # 1.6 K/mm3 (0.7-4.5); Lymphocytes % 25.4 % (10-50); Mean Corpuscular HGB Conc 32.7 g/dL (31.8-35.4); Mean Corpuscular Hemoglobin 29.6 pg (27.0-31.2); Mean Corpuscular Volume 90.6 fl (81-99); Mean Platelet Volume 9.7 fl (7.4-10.4); Monocytes # 0.5 K/mm3 (0.1-1.0); Monocytes % 8.3 % (1.7-9.3); Neutrophils # 3.8 K/mm3 (1.8-7.8); Neutrophils % 62.3 % (37.0-80.0); Platelet Count 280 K/mm3 (142-424); Red Blood Count 4.96 M/mm3 (4.20-5.40); Red Cell Distribution Width 14.8 % (11.5-17.5); White Blood Count 6.2 K/mm3 (4.8-10.8)
[2022-09-24 12:08] LABS: Alanine Aminotransferase 20 U/L (12-78); Albumin Level 4.2 g/dl (3.5-5.0); Alkaline Phosphatase 83 U/L (38-126); Anion Gap 18.2 mEq/L (5-15); Aspartate Amino Transferase 25 U/L (14-36); Bilirubin,Indirect 0.5 mg/dL (0.0-0.9); Bilirubin,Total 0.5 mg/dl (0.2-1.3); Bilirubin,Unconjugated 0.5 mg/dL (0.0-1.1); Blood Urea Nitrogen 19 mg/dl (7-17); Calcium 9.5 mg/dl (8.4-10.2); Carbon Dioxide 17 mmol/L (22.0-30.0); Chloride 109 mmol/L (98-107); Chol/HDL Ratio 4.9 (1-3.5); Cholesterol 311 mg/dl (140-200); Estimated Glomerular Filt Rate 34 ml/min (>60); GFR (African American) 41 ML/MIN (>60); Glucose 79 mg/dl (74-100); HDL Cholesterol 64 mg/dl (40-60); Magnesium 1.8 mg/dl (1.6-2.3); Potassium 4.2 mmoL/L (3.5-5.1); Sodium 140 mmol/L (136-145); Total Protein,Serum 6.9 g/dl (6.3-8.2); Triglycerides 132 mg/dl (30-150); VLDL Cholesterol 26 mg/dL (0-40)
[2022-09-24 12:19] LABS: Direct LDL Cholesterol 190.05 mg/dL (100-129)
[2022-09-24 12:24] LABS: Free T4 (Free Thyroxine) 0.89 ng/dl (0.78-2.19)
== END ==
PROVIDERS: PCP Emergency Medicine; Visit Provider Physician Assistant
DX: R06.00 Dyspnea, unspecified (principal); R07.9 Chest pain, unspecified; I15.0 Renovascular hypertension; I10 Essential (primary) hypertension; E78.5 Hyperlipidemia, unspecified; I70.1 Atherosclerosis of renal artery; I73.9 Peripheral vascular disease, unspecified; N28.9 Disorder of kidney and ureter, unspecified; R94.31 Abnormal electrocardiogram [ECG] [EKG]
CPT/HCPCS: 36415; 80048; 80061; 80076; 83735; 84439; 84443; 85025

== ENCOUNTER → 2022-10-01 11:15 | Outpatient (CLI) | payer MEDICAID, SELFPAY ==
[2022-10-01 14:18] LABS: Amphetamine/Metha Screen,Urine Negative ng/ml (<1000); Barbiturates Screen,Urine Negative ng/ml (<200)
[2022-10-01 14:19] LABS: Benzodiazepines Screen,Urine Negative ng/ml (<200); Cannabinoid Screen,Urine Negative ng/ml (<50)
[2022-10-01 14:20] LABS: Cocaine Screen,Urine Negative ng/ml (<300)
[2022-10-01 14:21] LABS: Methadone Screen,Urine Negative ng/ml (<300); Opiate Screen,Urine Negative ng/ml (<300)
[2022-10-01 14:23] LABS: Phencyclidine Screen,Urine Negative ng/ml (<25)
== END ==
PROVIDERS: PCP Emergency Medicine; Visit Provider Emergency Medicine
DX: F41.9 Anxiety disorder, unspecified (principal)
CPT/HCPCS: 80305

== ENCOUNTER → 2022-12-06 23:15 | Outpatient (CLI) | payer MEDICAID, SELFPAY ==
[2022-12-06 18:41] LABS: T4 (Thyroxine) 7.2 ug/dl (5.53-11.0)
== END ==
PROVIDERS: PCP Emergency Medicine; Visit Provider Emergency Medicine
DX: R79.89 Other specified abnormal findings of blood chemistry (principal)
CPT/HCPCS: 84436; 84443

== ENCOUNTER 2022-12-11 19:22 | Emergency (ER) | payer MEDICAID, SELFPAY ==
[2022-12-11 19:23] VITALS: BP 111/68; PULSE 77; RESP 16; TEMP 36.8; O2SAT 97; BMI 29.0
--- NOTE | 2022-12-11 19:30 | ECG_ITS ---
APPROVED REPORT Exam: Resting ECG HR:79 bpm ECG Measurements Heart Rate 79 AXES DE 181 P 59 QRSd 81 QRS 39 QT 353 T 62 QTc 388 Conclusion SINUS RHYTHM POSSIBLE RIGHT VENTRICULAR CONDUCTION DELAY [RSR (QR) IN V1/V2] BORDERLINE ECG UNCONFIRMED REPORT Electronically signed by : Glenroy Winter MD 12/11/2022 20:43:35
--- NOTE | 2022-12-11 19:40 | PC.NURSE ---
attempted IV stick and was unsuccessful. FREDDY Bailey to go attempt.
--- NOTE | 2022-12-11 19:50 | XR_ITS ---
PROCEDURE INFORMATION: Exam: XR Chest Exam date and time: 12/11/2022 8:09 PM Age: 52 years old Clinical indication: Other: Dizziness TECHNIQUE: Imaging protocol: Radiologic exam of the chest. Views: 1 view. COMPARISON: CR CXR2V XR chest 2V 08/01/2017 8:18 PM FINDINGS: Lungs: Pulmonary vasculature grossly normal. No gross pulmonary infiltrates or edema pattern. Granulomatous calcification in the left base again noted. Pleural spaces: No pleural effusion. No pneumothorax. Heart/Mediastinum: Heart size normal. No tracheal/mediastinal shift. Bones/joints: No acute osseous abnormalities are identified. 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 Correlate clinically for symptomatic instability at the interface. Other findings: Mild rightward rotation. IMPRESSION: 1. No acute cardiopulmonary process. 2. 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
--- NOTE | 2022-12-11 19:53 | HMH.EDGENADL ---
Discharge Plan Disposition Patient Disposition: Left Against Medical Advice Condition: Serious Chief Complaint: Abdominal Pain Clinical Impressions Clinical Impression: CLINT (acute kidney injury), Heat exhaustion, Orthostatic dizziness Discharge ED Provider: Kade Ruiz General Adult HPI General Chief complaint: Abdominal Pain Stated complaint: vomiting, lightheaded Time Seen by Provider: 12/11/22 19:30 Mode of Arrival: Ambulatory Source of Information: Patient Limitations: No Limitations Description of Symptoms (Recalled from ER Triage Doc. by RN): pt c/o n/v/d, light headed, LUQ pain that started a couple of days ago. History of Present Illness HPI narrative: Is a 52-year-old female with history of hypertension, hyperlipidemia, COPD, PAD status post stenting presenting with dizziness. Patient states that she has had 2 episodes of dizziness over the past 2 days. Fatiguing. Worse when she changes positions. Last episode was today right after she went on a fishing trip. Got inside from the heat and felt dizzy after she stood up. No chest pain, shortness of breath, nausea or vomiting, neurologic deficit, or any other concerns. Related Data Home Medications Medication Instructions Recorded Confirmed hydrocodone 7.5 mg-acetaminophen 1 tab PO Q6H PRN 10/10/21 12/06/22 325 mg tablet Previous Rx's Medication Instructions Recorded bisoprolol fumarate 5 mg tablet 5 mg PO QDAY #30 tabs 09/24/22 losartan 50 mg tablet 50 mg PO DAILY #30 tabs 09/24/22 clonazepam 0.5 mg tablet 0.5 mg PO TID Anxiety #90 tabs 10/01/22 gabapentin 600 mg tablet 600 mg PO BID #60 tabs 10/01/22 rivaroxaban 2.5 mg tablet (Xarelto) See Rx Instructions .Route 10/31/22 .COMPLEX #60 tabs aspirin 81 mg tablet,delayed See Rx Instructions .Route 11/25/22 release .COMPLEX #90 tabs cilostazol 100 mg tablet See Rx Instructions .Route 11/25/22 .COMPLEX #180 tabs potassium chloride 20 mEq See Rx Instructions .Route 11/25/22 tablet,extended release(part/cryst) .COMPLEX #180 tabs hydroxyzine pamoate 25 mg capsule 25 mg PO BID PRN itching #30 caps 12/06/22 (Vistaril) terbinafine HCl 250 mg tablet 250 mg PO DAILY #21 tabs 12/06/22 levothyroxine 50 mcg capsule 50 mcg PO DAILY elevated TSH #90 12/10/22 caps Allergies Allergy/AdvReac Type Severity Reaction Status Date / Time meloxicam [From [facility]] Allergy Unknown Verified 12/06/22 13:07 Penicillins [PENICILLINS] Allergy Unknown Verified 12/06/22 13:07 ibuprofen [IBUPROFEN] AdvReac Unknown NAUSEA Verified 12/06/22 13:07 [facility] Disclaimer: The information contained in this section may have been updated after the patient was seen, as this information can be updated by other users. Medical History Abnormal electrocardiogram [ECG] [EKG] Angina, class III Chest pain Claudication COPD (chronic obstructive pulmonary disease) Dyspnea Hypertension Ischemic neuropathy of left foot Left foot pain PAD (peripheral artery disease) PAD (peripheral artery disease) Renal artery stenosis Renovascular hypertension Tobacco use Social History Smoking Status: Current every day smoker tobacco type: cigarettes packs per day: 1 second hand exposure: Yes alcohol intake: never counseling provided: none substance use type: denies use current occupational status: unemployed Travel in the last 8 weeks: None household members: spouse housing: house current occupational exposures/hazards: No caffeine: Yes ROS Obtained: Yes All systems reviewed & no additional complaints except as documented Physical Exam General General appearance: alert, in no apparent distress and other ( ) Head Head exam: atraumatic and normocephalic Eye Eye exam: Present normal appearance, PERRL and EOMI ENT ENT exam: Present mucous membranes moist Neck Neck exam: Present normal inspection, full ROM and trachea midline Respiratory Res
--- NOTE | 2022-12-11 19:55 | PC.NURSE ---
Pt unable to provide urine sample at this time.
--- NOTE | 2022-12-11 20:24 | PC.NURSE ---
lab at bedside, pt requesting water at this time. will check with .
[2022-12-11 20:32] VITALS: BP 90/56; PULSE 73; O2SAT 96
[2022-12-11 20:37] LABS: Basophils % 0.5 % (0.1-2.0); Eosinophils # 0.3 K/mm3 (0.0-0.4); Eosinophils % 2.8 % (0.1-12.0); Hematocrit 49.9 % (37.0-47.0); Hemoglobin 15.7 g/dL (12.2-16.2); Lymphocytes # 1.4 K/mm3 (0.7-4.5); Lymphocytes % 16.2 % (10-50); Mean Corpuscular HGB Conc 31.5 g/dL (31.8-35.4); Mean Corpuscular Hemoglobin 29.4 pg (27.0-31.2); Mean Corpuscular Volume 93.4 fl (81-99); Mean Platelet Volume 10.5 fl (7.4-10.4); Monocytes # 0.7 K/mm3 (0.1-1.0); Monocytes % 7.4 % (1.7-9.3); Neutrophils # 6.5 K/mm3 (1.8-7.8); Neutrophils % 73.2 % (37.0-80.0); Platelet Count 305 K/mm3 (142-424); Red Blood Count 5.35 M/mm3 (4.20-5.40); Red Cell Distribution Width 15.2 % (11.5-17.5); White Blood Count 8.9 K/mm3 (4.8-10.8)
--- NOTE | 2022-12-11 20:49 | PC.NURSE ---
pt resting in bed nothing needed at this time, call light at bs
[2022-12-11 21:00] VITALS: BP 95/59; PULSE 70; O2SAT 98
[2022-12-11 21:06] LABS: Troponin I < 0.01 ng/ml (0.00-0.034)
[2022-12-11 21:10] LABS: Alanine Aminotransferase 20 U/L (12-78); Albumin Level 4.1 g/dl (3.5-5.0); Albumin/Globulin Ratio 1.2 (1.1-1.8); Alkaline Phosphatase 80 U/L (38-126); Aspartate Amino Transferase 25 U/L (14-36); Bilirubin,Total 0.3 mg/dl (0.2-1.3); Blood Urea Nitrogen 33 mg/dl (7-17); Calcium 8.7 mg/dl (8.4-10.2); Carbon Dioxide 12 mmol/L (22.0-30.0); Chloride 112 mmol/L (98-107); Creatinine Clearance Estimated 20 mL/min (50-200); Estimated Glomerular Filt Rate 11 ml/min (>60); GFR (African American) 13 ML/MIN (>60); Globulin 3.3 g/dL (1.3-3.2); Glucose 96 mg/dl (74-100); Sodium 137 mmol/L (136-145); Total Protein,Serum 7.4 g/dl (6.3-8.2)
[2022-12-11 21:30] VITALS: BP 96/63; PULSE 64; O2SAT 95
--- NOTE | 2022-12-11 21:47 | PC.NURSE ---
PT ambulatory to bathroom. Urine sample obtained.
[2022-12-11 21:50] LABS: Microscopic, Urine URINE MICROSCOPIC (MICROSCOPIC)
[2022-12-11 22:00] LABS: Appearance,Urine CLEAR (Clear); Bilirubin,Urine Negative (Negative); Blood, Urine TRACE-I (Negative); Color,Urine YELLOW (Yellow); Glucose,Urine (UA) Negative (Negative); Ketones,Urine Negative (Negative); Leukocyte Esterase,Urine Negative (Negative); Nitrate,Urine Negative (Negative); PH,Urine 5.5 (5.0-8.5); Protein,Urine TRACE (Negative); Urobilinogen,Urine 0.2 EU/dl (0.2)
--- NOTE | 2022-12-11 22:03 | PC.NURSE ---
Dr. Ruiz at BS
--- NOTE | 2022-12-11 22:15 | PC.NURSE ---
md states patient elects to leave despite recommendation to be admitted. discussed plan of care with patient, patientstates she understands and can't stay due to social obligation. vss. no acute distress. denies any of the original presenting symptoms. ambulated out of facility.
[2022-12-11 22:18] VITALS: BP 152/70; PULSE 73; RESP 15; TEMP 36.7; O2SAT 98
[2022-12-11 22:22] LABS: Bacteria,Urine Trace /lpf; RBC,Urine Occasional #/hpf (0-3); Squamous Epithelial Cell,Urine Occasional #/hpf (0-5); WBC,Urine Occasional #/hpf (0-3)
== END 2022-12-11 22:20 | disposition left against medical advice (07) ==
LOC: ER 20:10 → 2ND 22:13
PROVIDERS: Emergency Provider Emergency Medicine; PCP Emergency Medicine; Visit Provider Internal Medicine Adolescent Medicine
DX: N17.9 Acute kidney failure, unspecified (principal); T67.5XXA Heat exhaustion, unspecified, initial encounter; R42 Dizziness and giddiness; R10.12 Left upper quadrant pain; I15.0 Renovascular hypertension; I20.9 Angina pectoris, unspecified; J44.9 Chronic obstructive pulmonary disease, unspecified; I73.9 Peripheral vascular disease, unspecified; G62.9 Polyneuropathy, unspecified; F17.210 Nicotine dependence, cigarettes, uncomplicated
CPT/HCPCS: 36415; 71045; 80053; 81001; 84484; 85025; 93005; 96360; 99285

== ENCOUNTER → 2022-12-27 11:10 | Outpatient (CLI) | payer MEDICAID, SELFPAY ==
[2022-12-27 18:39] LABS: Amphetamine/Metha Screen,Urine Negative ng/ml (<1000)
[2022-12-27 18:40] LABS: Barbiturates Screen,Urine Negative ng/ml (<200); Benzodiazepines Screen,Urine Negative ng/ml (<200)
[2022-12-27 18:41] LABS: Cannabinoid Screen,Urine Negative ng/ml (<50); Cocaine Screen,Urine Negative ng/ml (<300)
[2022-12-27 18:42] LABS: Methadone Screen,Urine Negative ng/ml (<300)
[2022-12-27 18:43] LABS: Opiate Screen,Urine Positive ng/ml (<300)
[2022-12-27 18:44] LABS: Phencyclidine Screen,Urine Negative ng/ml (<25)
== END ==
PROVIDERS: PCP Emergency Medicine; Visit Provider Emergency Medicine
DX: Z79.899 Other long term (current) drug therapy (principal)
CPT/HCPCS: 80305

== ENCOUNTER → 2023-03-26 12:16 | Outpatient (CLI) | payer MEDICAID, SELFPAY ==
[2023-03-26 12:33] LABS: Basophils # 0.1 K/mm3 (0-0.2); Basophils % 0.6 % (0.1-2.0); Eosinophils # 0.3 K/mm3 (0.0-0.4); Eosinophils % 3.3 % (0.1-12.0); Hematocrit 44.1 % (37.0-47.0); Hemoglobin 14.9 g/dL (12.2-16.2); Lymphocytes # 1.5 K/mm3 (0.7-4.5); Lymphocytes % 18.2 % (10-50); Mean Corpuscular HGB Conc 33.7 g/dL (31.8-35.4); Mean Corpuscular Hemoglobin 31.3 pg (27.0-31.2); Mean Corpuscular Volume 92.7 fl (81-99); Mean Platelet Volume 8.6 fl (7.4-10.4); Monocytes # 0.4 K/mm3 (0.1-1.0); Monocytes % 5.1 % (1.7-9.3); Neutrophils # 6.1 K/mm3 (1.8-7.8); Neutrophils % 72.8 % (37.0-80.0); Platelet Count 232 K/mm3 (142-424); Red Blood Count 4.76 M/mm3 (4.20-5.40); Red Cell Distribution Width 14.6 % (11.5-17.5); White Blood Count 8.3 K/mm3 (4.8-10.8)
[2023-03-26 13:38] LABS: Alanine Aminotransferase 21 U/L (12-78); Albumin Level 4.2 g/dl (3.5-5.0); Albumin/Globulin Ratio 1.4 (1.1-1.8); Alkaline Phosphatase 71 U/L (38-126); Anion Gap 15.2 mEq/L (5-15); Aspartate Amino Transferase 25 U/L (14-36); Bilirubin,Total 0.4 mg/dl (0.2-1.3); Blood Urea Nitrogen 19 mg/dl (7-17); Calcium 9.6 mg/dl (8.4-10.2); Carbon Dioxide 16 mmol/L (22.0-30.0); Chloride 113 mmol/L (98-107); Estimated Glomerular Filt Rate 26 ml/min (>60); GFR (African American) 32 ML/MIN (>60); Globulin 2.9 g/dL (1.3-3.2); Glucose 93 mg/dl (74-100); Potassium 4.2 mmoL/L (3.5-5.1); Sodium 140 mmol/L (136-145); Total Protein,Serum 7.1 g/dl (6.3-8.2)
[2023-03-26 13:55] LABS: Free Thyroxine Index 2.9 ug/dL (5.93-13.13); T4 (Thyroxine) 8.5 ug/dl (5.53-11.0); Triiodothryronine (T3) Uptake 34 % (23.5-40.5)
[2023-03-26 14:09] LABS: Thyroid Stimulating Hormone 6.79 uIU/mL (0.465-4.68)
[2023-03-26 23:21] LABS: Amphetamine/Metha Screen,Urine Negative ng/ml (<1000); Barbiturates Screen,Urine Negative ng/ml (<200)
[2023-03-26 23:22] LABS: Benzodiazepines Screen,Urine Negative ng/ml (<200)
[2023-03-26 23:23] LABS: Cannabinoid Screen,Urine Negative ng/ml (<50); Cocaine Screen,Urine Negative ng/ml (<300)
[2023-03-26 23:24] LABS: Methadone Screen,Urine Negative ng/ml (<300)
[2023-03-26 23:25] LABS: Opiate Screen,Urine Negative ng/ml (<300); Phencyclidine Screen,Urine Negative ng/ml (<25)
== END ==
PROVIDERS: PCP Emergency Medicine; Visit Provider Emergency Medicine
DX: I70.1 Atherosclerosis of renal artery (principal); Z79.899 Other long term (current) drug therapy; Z72.0 Tobacco use
CPT/HCPCS: 36415; 80053; 80305; 84436; 84443; 84479; 85025

== ENCOUNTER → 2023-04-30 14:28 | Outpatient (CLI) | payer MEDICAID, SELFPAY ==
[2023-04-30 12:19] LABS: Amphetamine/Metha Screen,Urine Negative ng/ml (<1000)
[2023-04-30 12:21] LABS: Barbiturates Screen,Urine Negative ng/ml (<200); Cannabinoid Screen,Urine Negative ng/ml (<50)
[2023-04-30 12:22] LABS: Benzodiazepines Screen,Urine Negative ng/ml (<200)
[2023-04-30 12:23] LABS: Opiate Screen,Urine Negative ng/ml (<300)
[2023-04-30 12:24] LABS: Cocaine Screen,Urine Negative ng/ml (<300); Methadone Screen,Urine Negative ng/ml (<300)
[2023-04-30 12:27] LABS: Phencyclidine Screen,Urine Negative ng/ml (<25)
== END ==
PROVIDERS: PCP Nurse Practitioner Family; Visit Provider Nurse Practitioner Family
DX: Z79.899 Other long term (current) drug therapy (principal)
CPT/HCPCS: 80305

== ENCOUNTER 2023-05-23 10:11 | Outpatient (CLI) | payer MEDICAID, SELFPAY ==
[2023-05-23 12:54] LABS: Amphetamine/Metha Screen,Urine Negative ng/ml (<1000); Barbiturates Screen,Urine Negative ng/ml (<200); Benzodiazepines Screen,Urine Negative ng/ml (<200); Cannabinoid Screen,Urine Negative ng/ml (<50); Cocaine Screen,Urine Negative ng/ml (<300); Methadone Screen,Urine Negative ng/ml (<300); Opiate Screen,Urine Positive ng/ml (<300); Phencyclidine Screen,Urine Negative ng/ml (<25)
[2023-05-29 13:21] LABS: Alprazolam Negative (Cutoff=100); Benzodiazepines Negative ng/mL (Cutoff=100); Clonazepam Negative (Cutoff=100); Flurazepam Negative (Cutoff=100); Lorazepam Negative (Cutoff=100); Midazolam Negative (Cutoff=100); Temazepam Negative (Cutoff=100); Triazolam Negative (Cutoff=100)
== END 2023-05-23 23:59 ==
LOC: LAB.DROPOF 05-24 10:11
PROVIDERS: PCP Nurse Practitioner Family; Visit Provider Nurse Practitioner Family
DX: Z79.899 Other long term (current) drug therapy (principal)
CPT/HCPCS: 80307; 80346

== ENCOUNTER 2024-01-13 11:30 | Outpatient (CLI) | payer MEDICAID, SELFPAY | END 2024-01-13 23:59 | disposition home or self-care (01) | LOC: LAB.DROPOF 01-14 10:29 | PROVIDERS: PCP Nurse Practitioner; Visit Provider Nurse Practitioner | DX: L97.509 Non-pressure chronic ulcer of other part of unspecified foot with unspecified severity (principal) | CPT/HCPCS: 87070; 87077; 87186; 87205 ==

== ENCOUNTER 2024-02-03 09:50 | Outpatient (CLI) | payer MEDICAID, SELFPAY | END 2024-02-03 23:59 | disposition home or self-care (01) | LOC: LAB.DROPOF 02-04 12:44 | PROVIDERS: PCP Nurse Practitioner; Visit Provider Nurse Practitioner | DX: L97.522 Non-pressure chronic ulcer of other part of left foot with fat layer exposed (principal) | CPT/HCPCS: 87070; 87077; 87186; 87205 ==

== ENCOUNTER 2024-02-05 09:44 | Outpatient (CLI) | payer MEDICAID, SELFPAY ==
--- NOTE | 2024-02-05 09:49 | US_ITS ---
FINAL REPORT CLINICAL HISTORY: ischemic toe ulceration of left foot #4/#5-black 4th digit with dusky appearance. Patient in pain throughout exam. COMPARISON: None FINDINGS: ANKLE-BRACHIAL PRESSURE INDICES Pressure indices are as follows: RIGHT LOWER EXTREMITY: Ankle-brachial pressure index: 0.5 Comments: Moderate to severe disease LEFT LOWER EXTREMITY: Ankle-brachial pressure index: 0.5 Comments: Moderate to severe disease Waveforms are monophasic throughout bilaterally. 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 Recommend CTA for catheter directed angiography. Reviewed, Interpreted and Dictated by Merrill Ambrosio MD Transcribed by Zahida Loya Authenticated and [facility]
== END 2024-02-05 23:59 | disposition home or self-care (01) ==
LOC: RT 09:45
PROVIDERS: PCP Internal Medicine; Visit Provider Nurse Practitioner
DX: R09.89 Other specified symptoms and signs involving the circulatory and respiratory systems (principal)
CPT/HCPCS: 93923

== ENCOUNTER 2024-06-24 10:00 | Outpatient (CLI) | payer MEDICAID, SELFPAY | END 2024-06-24 23:59 | disposition home or self-care (01) | LOC: LAB.DROPOF 06-25 12:49 | PROVIDERS: PCP Internal Medicine; Visit Provider Internal Medicine | DX: I12.9 Hypertensive chronic kidney disease with stage 1 through stage 4 chronic kidney disease, or unspecified chronic kidney disease (principal); N18.32 Chronic kidney disease, stage 3b; F17.210 Nicotine dependence, cigarettes, uncomplicated | CPT/HCPCS: 82043 ==